=== PATIENT | female | born 1940 | race Caucasian/White ===

== ENCOUNTER 2017-12-28 10:44 | Day surgery (SDC) | payer MEDICARE, BC ==
[~2017-12-28 10:44] MED LIST: Buffered Lidocaine 0.9% SYRIN* 5 ML/SYR SYRINGE INTRADERM ONE
[2017-12-28] MEDS ORDERED: Lidocaine 1% MPF* 2 ML VIAL ONE (12:54)
[2017-12-28] MEDS ORDERED: Ketorolac 0.5% OPHTH (NF) 0.5 % 5 ML BTL ONE (12:54)
[2017-12-28] MEDS ORDERED: Phenylephrine 2.5% OPTH.SOL* 2 ML BTL ONE (12:54)
[2017-12-28] MEDS ORDERED: Tropicamide 1% OPTH.SOL* BTL ONE (12:54)
[2017-12-28] MEDS ORDERED: Neomycin/Polymy/Dex OPHTH.OIN* 3.5 GM ONE (12:54)
[2017-12-28] MEDS ORDERED: Tetracaine 0.5% OPTH.SOL 4 ML* 1 DROP BTL ONE (12:54)
[2017-12-28] MEDS ORDERED: Cyclopentolate 1% OPTH.SOL* 2 ML BTL ONE (12:54)
[2017-12-28] MEDS ORDERED: Midazolam* 1 MG/ML 2 ML VIAL (2 MG) ONE (13:19)
[2017-12-28 13:45] VITALS: BP 131/71
--- NOTE | 2017-12-28 15:56 | OP ---
DATE OF OPERATION/DATE OF DICTATION: 12/28/2017 - [facility] DATE OF : 1940. SURGEON: Dr. Estevan Nicole. ENGINEERING ASSISTANT: None. ANESTHESIA: Topical with intravenous sedation. PRE-OP DIAGNOSIS: Cataract, right eye. POST-OP DIAGNOSIS: Cataract, right eye. OPERATIVE PROCEDURE: Phacoemulsification and cataract extraction with posterior chamber intraocular lens implant, right eye. COMPLICATIONS: None. BLOOD LOSS: None. DESCRIPTION OF PROCEDURE: The patient was brought to the operating room and received a small amount of intra-venous sedation. A drop of Tetracaine was placed in her right eye. She was prepped and draped in the usual sterile fashion for ophthalmic surgery and attention was directed to the right eye where a speculum was placed. A paracentesis was created at the 11 o'clock position and 0.1 cc of 1 percent preservative-free Lidocaine was injected into the anterior chamber followed by DisCoVisc. The eye was digitally stabilized while a 2.75 mm keratome was used to create a triplanar clear corneal incision at the 9 o'clock position. A continuous curvilinear capsulorrhexis was created with a cystotome and Utrata forceps. BSS on a cannula was used to hydrodissect the lens from the capsule. Phacoemulsification was performed in a divide-and- conquer technique to create four fragments which were removed. Residual cortical material was removed with irrigation and aspiration. DisCoVisc was used to inflate the capsular bag and an AUOOTO 24.0 diopter lens was folded and inserted into the capsular bag. DisCoVisc was removed using irrigation and aspiration. BSS on a cannula was used to hydrate the corneal stroma and seal the wound. At the end of the case the pupil was round and the lens was centered. The eye was of normal pressure and the wound was water tight. The speculum was removed and topical Maxitrol ointment was placed on the surface of the eye. The eye was closed, patched and shielded and the patient was sent to the recovery room in stable condition with post operative instructions and follow-up appointment given. [id number] #: [id number] MTDD
== END 2017-12-28 14:02 | disposition home or self-care (01) ==
LOC: OREAST 10:44
PROVIDERS: ATTEND Ophthalmology
DX: H25.11 Age-related nuclear cataract, right eye (principal); I48.91 Unspecified atrial fibrillation; Z79.01 Long term (current) use of anticoagulants; I10 Essential (primary) hypertension; E78.00 Pure hypercholesterolemia, unspecified
CPT/HCPCS: A9270-GY; J2250; V2632

== ENCOUNTER 2018-01-04 08:01 | Day surgery (SDC) | payer MEDICARE, OTHER ==
[~2018-01-04 08:01] MED LIST changes: +Acetaminophen TAB* 325 MG PO PRN
[2018-01-04] MEDS ORDERED: Midazolam* 1 MG/ML 2 ML VIAL (2 MG) ONE (09:03)
[2018-01-04 10:00] VITALS: BP 130/82
[2018-01-04] MEDS ORDERED: Neomycin/Polymy/Dex OPHTH.OIN* 3.5 GM ONE (10:07)
[2018-01-04] MEDS ORDERED: Phenylephrine 2.5% OPTH.SOL* 2 ML BTL ONE (10:07)
[2018-01-04] MEDS ORDERED: Tropicamide 1% OPTH.SOL* BTL ONE (10:07)
[2018-01-04] MEDS ORDERED: Ketorolac 0.5% OPHTH (NF) 0.5 % 5 ML BTL ONE (10:07)
[2018-01-04] MEDS ORDERED: Lidocaine 1% MPF* 2 ML VIAL ONE (10:07)
[2018-01-04] MEDS ORDERED: Cyclopentolate 1% OPTH.SOL* 2 ML BTL ONE (10:07)
[2018-01-04] MEDS ORDERED: Tetracaine 0.5% OPTH.SOL 4 ML* 1 DROP BTL ONE (10:07)
--- NOTE | 2018-01-04 16:25 | OP ---
DATE OF OPERATION/DATE OF DICTATION: 01/04/2018 - [facility] DATE OF : 1940. SURGEON: Dr. Estevan Nicole. HVAC TECHNICIAN: None. ANESTHESIA: Topical with intravenous sedation. PRE-OP DIAGNOSIS: Cataract, left eye. POST-OP DIAGNOSIS: Cataract, left eye. OPERATIVE PROCEDURE: Phacoemulsification and cataract extraction with posterior chamber intraocular lens implant, left eye. COMPLICATIONS: None. BLOOD LOSS: None. DESCRIPTION OF PROCEDURE: The patient was brought to the operating room and received a small amount of intravenous sedation. A drop of Tetracaine was placed in her left eye. She was prepped and draped in the usual sterile fashion for ophthalmic surgery and attention was directed to the left eye where a speculum was placed. A paracentesis was created at the 5 o'clock position and 0.1 cc of 1 percent preservative-free Lidocaine was injected into the anterior chamber followed by DisCoVisc. The eye was digitally stabilized while a 2.75 mm keratome was used to create a triplanar clear corneal incision at the 3 o'clock position. A continuous curvilinear capsulorrhexis was created with a cystotome and Utrata forceps. BSS on a cannula was used to hydrodissect the lens from the capsule. Phacoemulsification was performed in a divide-and- conquer technique to create four fragments which were removed. Residual cortical material was removed with irrigation and aspiration. DisCoVisc was used to inflate the capsular bag and an AUOOTO 23.0 diopter lens was folded and inserted into the capsular bag. DisCoVisc was removed using irrigation and aspiration. BSS on a cannula was used to hydrate the corneal stroma and seal the wound. At the end of the case the pupil was round and the lens was centered. The eye was of normal pressure and the wound was water tight. The speculum was removed and topical Maxitrol ointment was placed on the surface of the eye. The eye was closed, patched and shielded and the patient was sent to the recovery room in stable condition with post operative instructions and follow-up appointment given. [id number] #: [id number] MTDD
== END 2018-01-04 10:11 | disposition home or self-care (01) ==
LOC: OREAST 08:01
PROVIDERS: ATTEND Ophthalmology
DX: H25.12 Age-related nuclear cataract, left eye (principal); I10 Essential (primary) hypertension; I48.1 Persistent atrial fibrillation; Z79.01 Long term (current) use of anticoagulants; E78.2 Mixed hyperlipidemia; M54.41 Lumbago with sciatica, right side
CPT/HCPCS: A9270-GY; J2250; V2632

== ENCOUNTER 2018-12-06 05:55 | Inpatient (IN) | payer MEDICARE, OTHER ==
[~2018-12-06 05:55] MED LIST changes: -Acetaminophen TAB* 325 MG PO PRN; -Buffered Lidocaine 0.9% SYRIN* 5 ML/SYR SYRINGE INTRADERM ONE; +Buffered Lidocaine 1% SYRIN* 1 ML/SYRINGE INTRADERM ONE
[2018-12-06] MEDS ORDERED: Lactated Ringers 1000 ML Bag* 1,000 ML IV SCH (06:00)
[2018-12-06] MEDS ORDERED: Sodium Citrate/Citric Acid* 15 ML UDC PO ONE (06:00)
[2018-12-06] MEDS ORDERED: Sodium Citrate/Citric Acid* 15 ML UDC ONE (06:15)
[2018-12-06] MEDS ORDERED: ceFAZolin 2 GM PREMIX in ORs 2 GM/50 ML BAG IVPB ONE (06:15)
[2018-12-06] MEDS ORDERED: Bacitracin IV* 50,000 UNITS INJ ONE ×2 (06:42→10:00)
[2018-12-06] MEDS ORDERED: Lidocain 1% EPI 1:100,000 * 30 ML MDV ONE ×2 (06:42→10:00)
[2018-12-06] MEDS ORDERED: Thrombin 5,000 UNITS* 1 APPLIC KIT - topical use - TOPICAL ONE ×2 (06:42→10:00)
[2018-12-06] MEDS ORDERED: Propofol* 10 MG/ML 20 ML BTL ONE (07:32)
[2018-12-06] MEDS ORDERED: fentaNYL* 50 MCG/ML 2 ML VIAL (100 MCG VIAL) ONE ×2 (07:32→09:51)
[2018-12-06] MEDS ORDERED: Rocuronium* 10 MG/ML VIAL ONE (07:34)
[2018-12-06] MEDS ORDERED: Dexamethasone IV* 4 MG/ML 1 ML (4 MG) ONE (07:58)
[2018-12-06] MEDS ORDERED: Ondansetron INJ* 2 MG/ML VIAL IV PRN ×2 (08:29→10:12)
[2018-12-06] MEDS ORDERED: Naloxone* 0.4 MG/ML 1 ML VIAL IV PRN (08:29)
[2018-12-06] MEDS ORDERED: fentaNYL* 50 MCG/ML 2 ML VIAL (100 MCG VIAL) IV PRN (08:29)
[2018-12-06] MEDS ORDERED: Cisatracurium* 2 MG/ML MDV 5 ML ONE (09:35)
[2018-12-06] MEDS ORDERED: Ketorolac INJ* 30 MG/ML 1 ML VIAL ONE (10:03)
[2018-12-06] MEDS ORDERED: Acetaminophen TAB* 325 MG PO PRN (10:12)
[2018-12-06] MEDS ORDERED: Magnesium Hydroxide LIQ* 30 ML UDC PO PRN (10:12)
[2018-12-06] MEDS ORDERED: Ondansetron INJ* 2 MG/ML VIAL ONE (10:25)
[2018-12-06] MEDS: Lactated Ringers 1000 ML Bag* 1,000 ML IV SCH ×2 (11:46→23:22)
[2018-12-06] MEDS ORDERED: Neostigmine Methylsulfate* 1 MG/ML 10 ML VIAL (1 mg/ml) ONE (12:14)
[2018-12-06] MEDS ORDERED: Glycopyrrolate IV* 0.2 MG/ML 1 ML VIAL ONE (12:14)
[2018-12-06] MEDS: Lisinopril TAB* 10 MG PO SCH (12:43)
[2018-12-06] MEDS: HYDROcodone/ACETAMIN 5-325 MG* 1 TAB PO PRN ×2 (15:04→23:17)
[2018-12-06] MEDS: Atorvastatin* 20 MG TAB PO SCH (17:33)
--- NOTE | 2018-12-07 08:48 | PN ---
Progress Note - Progress Note Date of Service: 12/07/18 SOAP: Subjective: []POD # 1 C/O moderate incisional pain Has ambulated with less leg pain than pre op Objective: []Moderate drain output Dressing dry Assessment: []Stable post op Drain output will require further monitoring Plan: [] Stable Plan as above
[2018-12-07] MEDS: Furosemide TAB* 20 MG PO SCH (09:12)
[2018-12-07] MEDS: Diltiazem CD CAP* 120 MG PO SCH (09:12)
[2018-12-07] MEDS: Lisinopril TAB* 10 MG PO SCH (09:12)
[2018-12-07] MEDS: Diltiazem CD CAP* 180 MG PO SCH (09:12)
[2018-12-07] MEDS: amLODIPine TAB* 5 MG PO SCH (09:12)
[2018-12-07] MEDS: HYDROcodone/ACETAMIN 5-325 MG* 1 TAB PO PRN (14:45)
[2018-12-07] MEDS: Atorvastatin* 20 MG TAB PO SCH (18:00)
[2018-12-08 09:34] VITALS: BP 140/75
[2018-12-08] MEDS: Lisinopril TAB* 10 MG PO SCH (09:35)
[2018-12-08] MEDS: amLODIPine TAB* 5 MG PO SCH (09:35)
[2018-12-08] MEDS: Diltiazem CD CAP* 180 MG PO SCH (09:35)
[2018-12-08] MEDS: Furosemide TAB* 20 MG PO SCH (09:35)
[2018-12-08] MEDS: Diltiazem CD CAP* 120 MG PO SCH (09:35)
--- NOTE | 2018-12-08 16:42 | OP ---
DATE OF OPERATION: 12/06/18 - ROOM #348 DATE OF : [birth year] PRIMARY SURGEON: Dr. Alexx Smith. REVENUE COORDINATOR: NATHANIEL Ray ANESTHESIA: General. PRE-OP DIAGNOSIS: Lumbar spinal stenosis L3-4, L4-5 with spondylolisthesis L4- 5. POST-OP DIAGNOSIS: Lumbar spinal stenosis L3-4, L4-5 with spondylolisthesis L4- 5. OPERATIVE PROCEDURE: Decompressive lumbar laminectomy L3-4, L4-5 with microdissection. DESCRIPTION OF PROCEDURE: After satisfactory general anesthesia was obtained, the patient was placed on the operating room table in the prone position with the chest supported on the Ivan frame and the back slightly flexed. The lumbar region was then clipped, prepped, and draped in a sterile manner and a skin incision outlined from L3 to L5. This incision was infiltrated with 1% Xylocaine with epinephrine, after which turned down sharply to the level of the lumbar fascia. The fascia was divided along the spinous processes from L3 to L5 and the paraspinal musculature was stripped away from these posterior elements using the periosteal elevator and monopolar cautery. An intraoperative x-ray was obtained verifying proper interspace localization, after which a decompression was initially carried out on the left side. Due to her spondylolisthesis, the decision was made to leave her midline structures intact. A partial hemilaminectomy was carried out at L3-4 initially by removing the inferior aspect of the L3 lamina and medial aspect of the facet complex with a combination of the Midas Sy drill and Kerrison rongeurs. This was carried superiorly until the attachment of ligamentum flavum was taken down. The pathology at this level was a combination of marked bony facet hypertrophy as well as ligamentum flavum thickening. The dissection was carried out laterally and inferiorly until the L4 nerve root was noted to be free in its course. In a similar way, a decompression was carried out at L4-5 on the left side. The inferior aspect of L4 and the superior aspect of L5 were thinned out and a generous foraminotomy carried out over the L5 nerve root. Attention was then directed to the right side, where the marked facet and ligamentous hypertrophy were even more impressive. On the right side, the operating microscope was utilized to dissect some thickened synovial tissue from the dura. The inferior aspect of L3 and medial aspect of the facet complex were thinned out and removed with a Kerrison and a generous foraminotomy carried out over the L4 nerve root. A similar decompression was then carried out at L4-5. The inferior aspect of L4 and medial aspect of the facet complex were thinned out and removed with the Kerrison. At the conclusion of the decompression, the wound was thoroughly irrigated, after which a drain was placed in the epidural space and tunneled out towards the left side. The fascia was then reapproximated with 0 Vicryl suture. The subcutaneous tissue was closed with 3-0 Vicryl suture and the skin closed with skin clips. The estimated blood loss was less than 50 cc and the final sponge, lina, and needle counts were correct. The patient was taken to the recovery room, extubated, and in stable condition. [id number] #: [id number] MTDD
== END 2018-12-08 11:35 | disposition home or self-care (01) | DRG 517 ==
LOC: OR 05:55 → SSU 08:27 → OBSVTOIN 12-07 08:27
PROVIDERS: ADMIT Neurological Surgery; ATTEND Neurological Surgery
PROC: 01NB0ZZ Release Lumbar Nerve, Open Approach (ICD-10-PCS; principal; 2018-12-07)
DX: M48.062 Spinal stenosis, lumbar region with neurogenic claudication (principal); I10 Essential (primary) hypertension; E78.5 Hyperlipidemia, unspecified; I48.0 Paroxysmal atrial fibrillation; I77.810 Thoracic aortic ectasia; I48.2 Chronic atrial fibrillation; M43.16 Spondylolisthesis, lumbar region; Z82.49 Family history of ischemic heart disease and other diseases of the circulatory system; Z80.9 Family history of malignant neoplasm, unspecified; Z87.891 Personal history of nicotine dependence
CPT/HCPCS: 72100; A9270-GY; J0690; J1100; J1885; J2405; J2704; J2710; J3010

== ENCOUNTER 2019-10-01 10:02 | Observation (INO) | payer MEDICARE, OTHER ==
--- NOTE | 2019-10-01 10:23 | ED ---
Adult Trauma - HPI Summary HPI Summary: The patient is an 79 y/o F presenting to [facility] accompanied by family with a chief complaint of a mechanical fall with trauma yesterday. She reports that she was getting up from the table to walk to the refrigerator, and then she is unsure if she tripped, but she fell. She denies any loss of consciousness with the event, but she is now sustaining multiple injuries following landing on her left knee, left hand, and hitting her nose. There is an abrasion on the right side of the nose, swelling in the right maxilla, swelling in the lower lip, pain in the left temporal area, ecchymosis on the left hand, swelling in the left knee with mild decreased ROM, and stiffness in the left side of the neck. Currently, her pain is rated 5/10 in severity. Movement aggravates the pain, and rest alleviates it mildly. She last self-administered Tylenol last night, and she has not taken any medications for pain this morning. She takes Xarelto. PMHx: atrial fibrillation, HTN, arthritis, cataracts. Former smoker, no EtOH, no substance use. Medications reviewed. Allergies noted. - History of Current Complaint Chief Complaint: EDFall Stated Complaint: INJURIES FROM FALL YESTERDAY PER PT Time Seen by Provider: 10/01/19 10:11 Hx Obtained From: Patient Mechanism of Injury: Fall Loss of Consciousness: no loss of consciousness Onset/Duration: Started Hours Ago - last night, Still Present Onset of Pain: Immediate Onset Severity: Moderate Current Severity: Moderate Pain Intensity: 5 Pain Scale Used: 0-10 Numeric Location: Head - left temporal, right cheek, nose, lower lip, Extremities - left hand, left knee Character: Aching Aggravating Factor(s): Movement Alleviating Factor(s): Rest Associated Signs & Symptoms: Positive: Ecchymosis - left hand, Other: - abrasion on the right side of the nose, swelling in the right maxilla, swelling in the lower lip, pain in the left temporal area, swelling in the left knee with mild decreased ROM, stiffness in the left side of the neck. Negative: Loss of Consciousness - Additional Pertinent History Primary Care Physician: [id number] - Allergy/Home Medications Allergies/Adverse Reactions: Allergies Allergy/AdvReac Type Severity Reaction Status Date / Time Sulfa (Sulfonamide Allergy Rash Verified 10/01/19 10:08 Antibiotics) PMH/Surg Hx/FS Hx/Imm Hx Endocrine/Hematology History: Denies: Hx Diabetes Cardiovascular History: Reports: Hx Atrial Fibrillation, Hx Hypertension - TAKES MEDICATION, Other Cardiovascular Problems/Disorders - a fib Denies: Hx Hypercholesterolemia, Hx Pacemaker/ICD Respiratory History: Denies: Other Respiratory Problems/Disorders GI History: Denies: Other GI Disorders History: Denies: Hx Renal Disease Musculoskeletal History: Reports: Hx Arthritis - HANDS, KNEES, HIPS Denies: Other Musculoskeletal History Sensory History: Reports: Hx Cataracts - radhika, Hx Contacts or Glasses - GLASSES, Hx Hearing Aid - radhika Opthamlomology History: Reports: Hx Cataracts - radhika, Hx Contacts or Glasses - GLASSES Neurological History: Denies: Other Neuro Impairments/Disorders Psychiatric History: Denies: Hx Panic Disorder - Surgical History Surgical History: Yes Surgery Procedure, Year, and Place: REMOVAL OF COLON POLYP, 1997, [facility] [place]. TUBAL LIGATION. appendectomy. left shoulder, 2013, [facility] [place] Hx Anesthesia Reactions: No Infectious Disease History: No Infectious Disease History: Denies: Traveled Outside the [place] in Last 30 Days - Family History Known Family History: Negative: Diabetes - Social History Alcohol Use: None Alcohol Amount: social only Hx Substance Use: No Substance Use Type: Reports: None Hx Tobacco Use: Yes Smoking Status (MU): Former Smoker Amount Used/How Often: 2 CIGARETTES PER DAYX 5 YEARS Review of Systems Positive: Myalgia - neck stiffness on left side, Decreased ROM - left lower extremity secondary to swelling in the knee Positive: Bruising - on left hand, Other - abrasion on nose, swelling of left lip Neurological: Other - facial injuries (swelling in the right maxilla, swelling in the lower lip, pain in the left temporal area); Negative: loss of consciousness All Other Systems Reviewed And Are Negative: Yes Physical Exam - Summary Physical Exam Summary: VITAL SIGNS: Reviewed. GENERAL: Patient is a well-developed and nourished elderly female who is lying comfortable in the stretcher. Patient is not in any acute respiratory distress. HEAD AND FACE: Tenderness in the left temporal area. Swelling in the right cheek. Abrasion on the nose. No ecchymosis, hematomas or skull depressions. No sinus tenderness. EYES: PERRLA, EOMI x 2, No injected conjunctiva, no nystagmus. No photophobia. EARS: Hearing grossly intact. Ear canals and tympanic membranes are within normal limits. MOUTH: Oropharynx within normal limits. NECK: Supple, trachea is midline, no adenopathy, no JVD, no carotid bruit, no c- spine tenderness, neck with full ROM. No meningeal signs, no Kernig's or brudzinskis signs. CHEST: Symmetric, no tenderness at palpation. LUNGS: Clear to auscultation bilaterally. No wheezing or crackles. CVS: Regular rate and rhythm, S1 and S2 present, no murmurs or gallops appreciated. ABDOMEN: Soft, non-tender. No signs of distention. No rebound, no guarding, and no masses palpated. Bowel sounds are normal. EXTREMITIES: Swelling of the left knee with decreased ROM in the left lower extremity. FROM in all other major joints. Bruising in the ventral aspect of the left hand. No edema, no cyanosis or clubbing. NEURO: Alert and oriented x 3. No acute neurological deficits. Speech is normal and follows commands. SKIN: Dry and warm. GCS: 15. Triage Information Reviewed: Yes Vital Signs On Initial Exam: Initial Vitals Temp Pulse Resp BP Pulse Ox 98.8 F 82 16 147/91 98 10/01/19 10:04 10/01/19 10:04 10/01/19 10:04 10/01/19 10:04 10/01/19 10:04 Vital Signs Reviewed: Yes - [place] Coma Scale Best Eye Response: 4 - Spontaneous Best Motor Response: 6 - Obeys Commands Best Verbal Response: 5 - Oriented Coma Scale Total: 15 Procedures - Sedation Patient Received Moderate/Deep Sedation with Procedure: No - Splinting Left Upper Extremity Location: left hand Hand-Made Type: orthoglass Splint: ulnar gutter Pre-Proc Neuro Vasc Exam: normal Post-Proc Neuro Vasc Exam: normal, unchanged from pre-exam Splint Applied by Provider: Hipolito Spain - Vital Signs Vital Signs Temp Pulse Resp BP Pulse Ox 10/01/19 10:04 98.8 F 82 16 147/91 98 - Laboratory Result Diagrams: 10/02/19 05:13 10/01/19 10:25 Lab Statement: Any lab studies that have been ordered have been reviewed, and results considered in the medical decision making process. - Radiology Left Wrist X-Ray Radiology Interpretation Completed By: Radiologist Summary of Radiographic Findings: Impression: 1. Nondisplaced fracture through the proximal shaft of the fourth metacarpal. 2. Osteopenia with no displaced wrist fracture. 3. Advanced first CMC osteoarthropathy. ED physician has reviewed this report. Left Hand X-Ray Radiology Interpretation Completed By: Radiologist Summary of Radiographic Findings: Impression: 1. Nondisplaced fracture at the proximal shaft of the fourth metacarpal. 2. Advanced osteoarthropathy as above. 3. Osteoporosis. ED physician has reviewed this report. Left Knee X-Ray Radiology Interpretation Completed By: Radiologist Summary of Radiographic Findings: Impression: 1. Lipohemarthrosis with a suspected medial tibial plateau fracture (no depressed component). 2. Vascular calcifications. ED physician has reviewed this report. - CT Brain CT CT Interpretation Completed By: Radiologist Summary of CT Findings: Impression: No acute intracranial abnormality. ED physician has reviewed this report. Cervical Spine CT CT Interpretation Completed By: Radiologist Summary of CT Findings: Impression: 1. No fracture or traumatic malalignment of the cervical spine. 2. Varying degrees of multilevel spondylosis results in at least mild osseous encroachment of the spinal canal C5-C6 and C6-C7. There is moderate bilateral neural foraminal stenosis at C5-C6. 3. Large burden of calcified atherosclerotic plaque near the common carotid artery bifurcations. ED physician has reviewed this report. Maxillofacial CT CT Interpretation Completed By: Radiologist Summary of CT Findings: Impression: 1. No acute maxillofacial fracture. 2. Suspected postoperative changes related to a prior left marginal mandibulectomy. 3. Untreated periodontal disease of the single remaining right mandibular molar. ED physician has reviewed this report. Left Lower Extremity CT CT Interpretation Completed By: Radiologist Summary of CT Findings: Impression: 1. A nondisplaced sagittally oriented medial tibial plateau fracture is in close proximity to the tibial spine. There is no depressed component. 2. Joint effusion with lipohemarthrosis. 3. A subcutaneous hematoma anterior to the tibial tuberosity measures up to 7 cm in greatest dimension. 4. Vascular calcifications. ED physician has reviewed this report. Re-Evaluation - Re-Evaluation First Eval Re-Evaluation Time: 12:00 Comment: I place a splint on the patient's left hand following imaging results. Adult Trauma Course/Dx - Course Assessment/Plan: This patient is an 79-year-old female who presents to the emergency department with a chief complaint of an accidental fall yesterday. She denies any loss of consciousness. She is complaining of right facial pain, slight headache and neck pain. She is also complaining of left hand and left knee pain. Blood work without any significant abnormality except for glucose of 119. Head CT impression: No acute intracranial abnormality. C Spine CT Impression: 1. No fracture or traumatic malalignment of the cervical spine. 2. Varying degrees of multilevel spondylosis results in at least mild osseous encroachment of the spinal canal C5-C6 and C6-C7. There is moderate bilateral neural foraminal stenosis at C5-C6. 3. Large burden of calcified atherosclerotic plaque near the common carotid artery bifurcations. Wrist and hand X ray Impression: 1. Nondisplaced fracture through the proximal shaft of the fourth metacarpal. 2. Osteopenia with no displaced wrist fracture. 3. Advanced first CMC osteoarthropathy. Knee x ray Impression: 1. Lipohemarthrosis with a suspected medial tibial plateau fracture (no depressed component). 2. Vascular calcifications. Discussed the case with Dr. Blanco from orthopedics and he recommends a left knee CT. This is and non weight bearing fracture. Also he recommends a posterior splint of the left hand. Maxillofacial CT Impression: 1. No acute maxillofacial fracture. 2. Suspected postoperative changes related to a prior left marginal mandibulectomy. 3. Untreated periodontal disease of the single remaining right mandibular molar. Left Knee CT Impression: 1. A nondisplaced sagittally oriented medial tibial plateau fracture is in close proximity to the tibial spine. There is no depressed component. 2. Joint effusion with lipohemarthrosis. 3. A subcutaneous hematoma anterior to the tibial tuberosity measures up to 7 cm in greatest dimension. 4. Vascular calcifications. I discussed my physical exam and test results with Dr. Espinosa from the hospitalist services, and she agrees to admit the patient to her services. The patient is hemodynamically stable alert and oriented x3. - Diagnoses Provider Diagnoses: Medial plateau fracture, Metacarpal bone fracture - Physician Notifications Discussed Care Of Patient With: Everett Moseley - orthopedics Time Discussed With Above Provider: 11:45 Instructed by Provider To: Other - I discussed the patients case with Dr. Moseley, who requests a CT for the tibial fracture, and he notes that she will need a wheelchair when she is sent home since it is a non-weight bearing injury. I spoke with Dr. Espinosa, hospitalist, and she recommends consulting case management since the patient is unable to use crutches for the lower extremity fracture because she also has a hand fracture. The patient is unable to get a wheelchair today, so the patient will be admitted through hospitalist services. Discharge ED - Sign-Out/Discharge Documenting (check all that apply): Patient Departure - Patient accepted for admission by Dr. Espinosa. - Discharge Plan Condition: Stable Disposition: ADMITTED TO [facility] - Billing Disposition and Condition Condition: STABLE Disposition: Admitted to [facility] - Attestation Statements Document Initiated by Ganesh: Yes Documenting Scribe: Paradise Valentine Provider For Whom Ganesh is Documenting (Include Credential): Dr. Hipolito Spain MD Scribe Attestation: IParad[place], scribed for Dr. Hipolito Spain MD on 10/02/19 at 0934. Scribe Documentation Reviewed: Yes Provider Attestation: The documentation as recorded by the Paradise torre accurately reflects the service I personally performed and the decisions made by me, Dr. Hipolito Spain MD Status of [place] Document: Viewed
[2019-10-01 10:35] LABS: ABS Lymphocytes 1.1 10^3/ul (1.0-4.8); ABS Monocytes 0.8 10^3/ul (0-0.8); ABS Neutrophils 5.3 10^3/ul (1.5-7.7); Eosinophil % 0.5 %; Hematocrit 40 % (35-47); Hemoglobin 13.7 g/dL (12.0-16.0); Lymphocyte % 14.6 %; Mean Corpuscular HGB Conc 34 g/dL (31-36); Mean Corpuscular Hemoglobin 31 pg (27-31); Mean Corpuscular Volume 92 fL (80-97); Platelet Count 201 10^3/uL (150-450); Red Blood Count 4.37 10^6 /uL (3.70-4.87); Red Cell Distribution Width 13 % (10-15); White Blood Count 7.2 10^3/uL (3.5-10.8)
[2019-10-01 10:55] LABS: Albumin 3.9 g/dL (3.2-5.2); Albumin/Globulin Ratio 1.3 (1-3); BUN/Creatinine Ratio 23.3 (8-20); Calcium 9.2 mg/dL (8.6-10.3); EGFR African American 76.6 (>60); EGFR Non-African American 63.3 (>60); Globulin 2.9 g/dL (2-4); Potassium 3.5 mmol/L (3.5-5.0); Total Protein 6.8 g/dL (6.4-8.9)
[2019-10-01 12:21] LABS: Urine Appearance Cloudy; Urine Bacteria Absent (Absent); Urine Bilirubin Negative (Negative); Urine Blood Negative (Negative); Urine Color Yellow; Urine Glucose Negative (Negative); Urine Ketones Negative (Negative); Urine Nitrite Negative (Negative); Urine Protein Negative (Negative); Urine Red Blood Cell Trace(0-2/hpf) (Absent); Urine Specific Gravity 1.009 (1.010-1.030); Urine Squamous Epithelial Cell Present (Absent); Urine Urobilinogen Negative (Negative); Urine White Blood Cell 2+(11-20/hpf) (Absent)
[2019-10-01] MEDS ORDERED: HYDROcodone/ACETAMIN 5-325 MG* 1 TAB PO ONE (13:14)
[2019-10-01] MEDS ORDERED: Ondansetron INJ* 2 MG/ML VIAL IV PRN (13:37)
[2019-10-01] MEDS ORDERED: oxyCODONE/Acetamin 5/325 MG* TAB PO PRN ×2 (13:37)
--- NOTE | 2019-10-01 14:07 | CONSULT ---
Consult Consult: Orthopedic Surgery Consultation H&P Date: 10/01/2019 Requesting Service: ER Chief Complaint: Left knee and left hand pain. History: 79F LHD who tripped over her dog and sustained a mechanical fall onto her left side. She does report that she was able to walk after the fall, with significant pain. She reports pain at left knee and left hand. Denies head strike or LOC. Denies pain elsewhere. The pain is located at the left knee and is constant, moderate, sharp. Pain worse with knee ROM and lessened when rested. Review of Systems: Negative for fever, recent visual changes, difficulty swallowing, chest pain, shortness of breath, abdominal pain, hematuria, easy bruising, diffuse weakness or lack of coordination, and diffuse rash. PMH: Atrial fibrillation, hypertension, arthritis, hyperlipidemia PSH: Left shoulder surgery, cataracts, spine surgery, abdominal surgery for polyp removal Medications: Diltiazem, lisinopril, felodipine, furosemide, pravastatin, xarelto Allergies: Sulfa drugs SH: Lives at home with her . No tobacco use. FH: Noncontributory Physical Examination: Constitutional: Temp Pulse Resp BP Pulse Ox 98.8 F 78 16 130/80 97 10/01/19 10:04 10/01/19 14:00 10/01/19 10:04 10/01/19 13:21 10/01/19 14:00 General appearance is healthy and non-septic in no acute distress. Cardiovascular: Pulse examination demonstrates positive pedal pulses with brisk capillary refill. There are no varicosities. Abdomen: Soft and nontender Lymphatic: No lymphadenopathy appreciated. Skin: Bilateral upper and lower extremity examination demonstrates no ulcerative lesions. Psychiatric / Neurological: Appropriate affect. Alert and oriented to person, place and time. There is no significant abnormality in coordination appreciated. Normoreflexive deep tendon reflex of the affected extremity. Musculoskeletal: Contralateral upper and lower extremity show full range of motion with no evidence of instability and no tenderness with palpation and 5/5 strength. There is no gross deformity. The left upper extremity is in a volar splint. The fingers are warm and well- perfused with good capillary refill. Sensation is intact to light touch in all 5 fingertips. The left lower extremity reveals that the skin is intact. She does have swelling and ecchymoses about the left knee. She is quite tender at the medial tibial plateau and diffusely laterally. She can perform a straight leg raise. She does have pain with flexion of the knee, but is able to do it. No hip pain with log roll. No TTP lower leg, ankle, foot. Palpable DP pulse. Sensation is intact to light touch in the foot. Imaging: X-rays and CT were obtained, and independently interpreted and show a nondisplaced left fourth metacarpal fracture. She also has extensive degenerative changes about the left hand and wrist. At the left knee, she has a nondisplaced medial tibial plateau fracture. Laboratory Results - last 24 hr 10/01/19 10/01/19 10/01/19 10:25 10:25 11:18 WBC 7.2 RBC 4.37 Hgb 13.7 Hct 40 MCV 92 MCH 31 MCHC 34 RDW 13 Plt Count 201 MPV 9.0 Neut % (Auto) 73.3 Lymph % (Auto) 14.6 [place] % (Auto) 11.1 Eos % (Auto) 0.5 Baso % (Auto) 0.5 Absolute Neuts (auto) 5.3 Absolute Lymphs (auto) 1.1 Absolute Monos (auto) 0.8 Absolute Eos (auto) 0.0 Absolute Basos (auto) 0.0 Absolute Nucleated RBC 0.0 Nucleated RBC % 0.0 Sodium 138 Potassium 3.5 Chloride 103 Carbon Dioxide 27 Anion Gap 8 BUN 20 Creatinine 0.86 Est GFR ( Amer) 76.6 Est GFR (Non-Af Amer) 63.3 BUN/Creatinine Ratio 23.3 H Glucose 119 H Calcium 9.2 Total Bilirubin 1.00 AST 25 ALT 19 Alkaline Phosphatase 75 Total Protein 6.8 Albumin 3.9 Globulin 2.9 Albumin/Globulin Ratio 1.3 Urine Color Yellow Urine Appearance Cloudy Urine pH 6.0 Ur Specific [place] 1.009 L Urine Protein Negative Urine Ketones Negative Urine Blood Negative Urine Nitrate Negative Urine Bilirubin Negative Urine Urobilinogen Negative Ur Leukocyte Esterase 3+ A Urine WBC (Auto) 2+(11-20/hpf) A Urine RBC (Auto) Trace(0-2/hpf) Ur Squamous Epith Cells Present A Urine Bacteria Absent Urine Glucose Negative Impression and Plan: 79-year-old female, status post mechanical fall with nondisplaced left fourth metacarpal fracture and left nondisplaced medial tibial plateau fracture. We did discuss the diagnosis and treatment options, including both nonoperative and operative treatment. My recommendation is nonoperative treatment. She will remain in the left upper extremity splint, and limit her weightbearing in the left hand. For the left lower extremity, she will be nonweightbearing, range of motion as tolerated at the knee. Knee immobilizer for comfort. Followup in 1- 2 weeks in orthopedic clinic. Kayode Moseley MD
[2019-10-01] MEDS: Acetaminophen TAB* 325 MG PO PRN (15:10)
--- NOTE | 2019-10-01 17:24 | HP ---
CC: Dr. Curran in [place]; Dr. Kayode Moseley, Orthopedics * ADMISSION HISTORY AND PHYSICAL: DATE OF ADMISSION: 10/01/19 PRIMARY CARE PROVIDER: Dr. Curran in [place]. MY ATTENDING WHILE IN THE HOSPITAL: Dr. Vicki Sparrow.* (DICTATED BY NATHANIEL BUTLER) CHIEF COMPLAINT: Fall, left knee pain. HISTORY OF PRESENT ILLNESS: Ms. Coles is an 79-year-old female with past medical history significant for hypertension, atrial fibrillation and history of lumbar compression fracture, who presents to the emergency department yesterday on 09/30/19 at approximately 1320, the patient was walking to the refrigerator and tripped over her dog. The patient did not lose consciousness. The patient did not feel weak before this. The patient had actually been feeling very well. The patient had no recent changes to her medications or any recent illnesses. The patient fell forward, hit her face, left hand and left knee on the refrigerator and the ground. The patient immediately felt pain in her knee. She did not feel pain before the fall. The patient had no numbness or tingling in her hand or her leg. The patient continued to ambulate on her leg , though she did have significant pain. The patient did take Tylenol for pain control and no NSAIDs. The patient continued to take her normal meds including her Xarelto that evening. The patient denied any fevers or chills. The patient denied any dysuria, urinary frequency, or urinary incontinence. The patient has no history of frequent UTIs. The patient due to concern for persistent pain, came into the emergency department and was found to have a tibial plateau fracture as well as a fracture of the proximal shaft of the fourth metacarpal. Due to concern for multiple fractures and need for nonweightbearing status on the left leg with probable inability to use assistive devices at home, we were asked to evaluate the patient for admission to the hospital. PAST MEDICAL HISTORY: Hypertension, hyperlipidemia, atrial fibrillation, lumbar spinal stenosis, history of lumbar compression fracture. PAST SURGICAL HISTORY: Abdominal polypectomy, back surgery, cataract surgery, shoulder surgery. MEDICATIONS: 1. Diltiazem CD 300 mg p.o. daily. 2. Lisinopril 40 mg p.o. daily. 3. Felodipine 2.5 mg p.o. daily. 4. Pravastatin 80 mg p.o. daily. 5. Xarelto 20 mg p.o. daily. 6. Multivitamin 1 tab. ALLERGIES: SULFA. FAMILY HISTORY: The patient's father of intracranial hemorrhage in his sleep. The patient's mother of complications of a clot in her heart. SOCIAL HISTORY: he patient quit smoking 30 years ago and only smoked for a brief period of time in the early . The patient does not drink alcohol since she was diagnosed with atrial fibrillation. The patient denies illicit drug use. The patient used to work as a cook at [employer]. The patient is , lives with her in [place] and has 4 children. The patient's surrogate decision maker will be her daughter, Aury Shaw. REVIEW OF SYSTEMS: A 12-point review of systems was reviewed and is negative except as above in the HPI. PHYSICAL EXAMINATION GENERAL: The patient is an 79-year-old female, who appears stated age and sitting comfortably in the bed, in no acute distress. VITAL SIGNS: At the time of evaluation, temperature 98.8, pulse rate 82, respiratory rate 16, oxygen saturation 94% on room air, blood pressure 147/91. HEENT: Head: Normocephalic, atraumatic. Sclerae anicteric. No conjunctival injection. Nasal mucosa moist. Oral mucosa moist. No pharyngeal erythema, discharge, or exudate. NECK: Supple, nontender. No lymphadenopathy. No carotid bruits auscultated. No JVD. RESPIRATORY: Clear to auscultation bilaterally. No wheezes, rales, or rhonchi. Good air exchange bilaterally. CARDIAC: Regular rate and rhythm. No clicks, murmurs, gallops, or rubs. Pulses are 2+ in the bilateral dorsalis pedis, posterior tibialis, and radial areas. 1+ edema in the left lower extremity. ABDOMEN: Soft, nontender, nondistended. Bowel sounds present and normoactive in all 4 quadrants. No hepatosplenomegaly. No abdominal bruits auscultated. No hepatojugular reflux. GENITOURINARY: No suprapubic or CVA tenderness. NEURO: Cranial nerves II through XII intact. No focal deficits. Alert and oriented x3. Distal sensation in the left upper and lower extremity is intact. SKIN: Clean, dry, and intact. No rash. DIAGNOSTIC STUDIES/LAB DATA: White blood cell count 7.2, hemoglobin 13.7, platelet count 201. Sodium 138, potassium 3.5, chloride 103, carbon dioxide 27 , anion gap 8, BUN 20, creatinine 0.86, glucose 119, calcium 9.2. Bilirubin 1.0 , AST 25, ALT 19, alkaline phosphatase 75. Protein 6.8, albumin 3.9, globulin 2.9. Urine: Yellow, cloudy, low specific gravity, 3+ leukocyte esterase, 2+ white blood cells, absent bacteria, trace red blood cells and squamous epithelial cells, negative glucose. Studies: Brain CT from 10/01/19 read as no acute intracranial abnormality. Cervical spine CT read as no fracture or traumatic malalignment of the cervical spine. Varying degrees of multilevel spondylosis and at least mild osseous encroachment of the spinal canal at C5-C6, C6-C7. There is mild bilateral neural foraminal stenosis at C5-C6. Large burden of calcified atherosclerotic plaque near the common carotid artery bifurcations. Maxillofacial CT read as no acute maxillofacial fracture. Suspected postoperative changes related to prior left marginal mandibulectomy. Untreated periodontal disease in the right mandibular molar. Hand x-ray from 10/01/19 read as nondisplaced fracture of the proximal shaft of the fourth metacarpal, advanced osteoarthropathy, osteoporosis. Left knee x-ray read as lipohemarthrosis with suspected medial tibial plateau fracture. No depressed component or vascular calcifications. Wrist x-ray from 10/01/19 read as nondisplaced fracture of the proximal shaft of the fourth metacarpal, osteopenia with no displaced wrist fracture, advanced first CMC osteoarthropathy. Lower extremity CT from 10/01/19 read as nondisplaced centrally oriented medial tibial plateau fracture in close proximity to the tibial spine. There is no depressed component. Joint effusion with lipohemarthrosis, subcutaneous hematoma, anterior tibial tuberosity measures up to 7 cm in greatest dimension, vascular calcification. ASSESSMENT AND PLAN: Impression: Ms. Coles is an 79-year-old female with past medical history significant for hypertension, hyperlipidemia, atrial fibrillation, who presents to the emergency department with a mechanical fall and a tibial plateau fracture as well as a metacarpal fracture in her left hand. Due to inability to obtain a wheelchair and inability to maintain functionality at home, the patient will be admitted to the hospital for observation, physical therapy and arrangement for home care. 1. Left tibial plateau fracture. The patient's case was discussed by the emergency department with Dr. Kayode Moseley, who is yet to make his final recommendations; however, initial recommendation is for nonweightbearing status. The patient also may need to be splinted or be placed in an immobilizer. There is no indication of vascular compromise or nervous injury distal to the injury. The patient will be arranged to have a wheelchair tomorrow as well as home physical therapy. The patient will be seen by Physical Therapy and Occupational Therapy while in the hospital due to her injuries. The patient will have pain control with Tylenol and opioids at this time. The patient's pain is not unmanageable. 2. Left fourth metacarpal fracture. The patient has been splinted in the emergency department for this, awaiting Ortho recommendations on weightbearing status for the hand, though given the splint the hand has limited functionality at this point. The patient will not be able to use crutches or a walker and will necessitate a wheelchair. 3. Hypertension. The patient is currently normotensive. Continue the patient' s diltiazem, felodipine, and lisinopril. 4. Atrial fibrillation. The patient currently has a regular rhythm on exam. The patient will be continued on her diltiazem. The patient is on Xarelto. 5. Pyuria. The patient has asymptomatic pyuria. The patient will not be treated with antibiotics at this time. If the patient does develop symptoms and has gross bacteria from her urine, treatment should be considered. 6. DVT prophylaxis: The patient is currently on Xarelto. 7. FEN: The patient will have a regular unrestricted diet. Fluids are not indicated at this time. 8. Disposition: Observation. 9. Code status: The patient would like to be a full code. TIME SPENT: Approximately 60 minutes was spent on the admission of this patient , 30 of which was spent [id number] with the patient obtaining history and physical and discussing treatment plan. This plan was discussed with my attending, Dr. Vicki Sparrow, and she is in agreement. NATHANIEL BUTLER [id number]/[facility] #: [id number] TAI
[2019-10-01] MEDS ORDERED: Rivaroxaban TAB(*) 20 MG TAB PO SCH (18:00)
[2019-10-01] MEDS ORDERED: Atorvastatin* 40 MG TAB PO SCH (18:00)
[2019-10-02 05:30] LABS: ABS Eosinophils 0.1 10^3/ul (0-0.6); ABS Lymphocytes 1.5 10^3/ul (1.0-4.8); ABS Monocytes 0.7 10^3/ul (0-0.8); ABS Neutrophils 2.9 10^3/ul (1.5-7.7); Eosinophil % 2.7 %; Hematocrit 38 % (35-47); Hemoglobin 12.7 g/dL (12.0-16.0); Lymphocyte % 27.9 %; Mean Corpuscular HGB Conc 34 g/dL (31-36); Mean Corpuscular Hemoglobin 32 pg (27-31); Mean Corpuscular Volume 93 fL (80-97); Mean Platelet Volume 8.9 fL (7.4-10.4); Nucleated Red Blood Cells % 0.1; Platelet Count 181 10^3/uL (150-450); Red Blood Count 4.05 10^6 /uL (3.70-4.87); Red Cell Distribution Width 13 % (10-15); White Blood Count 5.2 10^3/uL (3.5-10.8)
[2019-10-02] MEDS ORDERED: FELODIPINE 5 MG PO SCH (09:00)
[2019-10-02] MEDS ORDERED: Diltiazem CD CAP* 180 MG PO SCH (09:00)
[2019-10-02] MEDS ORDERED: Lisinopril TAB* 10 MG PO SCH (09:00)
[2019-10-02] MEDS ORDERED: Diltiazem CD CAP* 120 MG PO SCH (09:00)
[2019-10-02] MEDS ORDERED: Furosemide TAB* 20 MG PO SCH (09:00)
--- NOTE | 2019-10-02 10:30 | PN ---
Progress Note - Progress Note Date of Service: 10/02/19 SOAP: Subjective: []Pt seen at bedside, she feels well without complaints. L hand and L knee pain well controlled and denies any other joint or extremity pain. Denies headache, CP, SOB, dizziness, nausea. Objective: []Gen: NAD, Appears well LUE: Splint CDI, Sensation intact to light touch distally, capillary refill less than two seconds distally LLE: Mild ecchymosis anterior knee Assessment: []nondisplaced left fourth metacarpal fracture left nondisplaced medial tibial plateau fracture. Plan: []nonoperative treatment. left upper extremity splint, and NWB left hand. Okay to use platform walker left lower extremity, nonweightbearing, range of motion as tolerated at the knee. Knee immobilizer for comfort. Followup in 1- 2 weeks in orthopedic clinic DVT prophy: remain on 20 mg xarelto daily Vital Signs Temp 97.7 F 10/02/19 07:36 Pulse 84 10/02/19 07:36 Resp 17 10/02/19 08:32 BP 137/80 10/02/19 07:36 Pulse Ox 93 10/02/19 07:36 Intake & Output 10/01/19 10/02/19 10/02/19 18:59 06:59 18:59 Intake Total 450 320 Output Total 675 Balance 450 -675 320 Weight 153 lb Intake: Oral 450 320 Output: Urine 675 Laboratory Last Values WBC 5.2 10^3/uL (3.5-10.8) 10/02/19 05:13 RBC 4.05 10^6 /uL (3.70-4.87) 10/02/19 05:13 Hgb 12.7 g/dL (12.0-16.0) 10/02/19 05:13 Hct 38 % (35-47) 10/02/19 05:13 MCV 93 fL (80-97) 10/02/19 05:13 MCH 32 pg (27-31) H 10/02/19 05:13 MCHC 34 g/dL (31-36) 10/02/19 05:13 RDW 13 % (10-15) 10/02/19 05:13 Plt Count 181 10^3/uL (150-450) 10/02/19 05:13 MPV 8.9 fL (7.4-10.4) 10/02/19 05:13 Neut % (Auto) 55.7 % 10/02/19 05:13 Lymph % (Auto) 27.9 % 10/02/19 05:13 [place] % (Auto) 13.2 % 10/02/19 05:13 Eos % (Auto) 2.7 % 10/02/19 05:13 Baso % (Auto) 0.5 % 10/02/19 05:13 Absolute Neuts (auto) 2.9 10^3/ul (1.5-7.7) 10/02/19 05:13 Absolute Lymphs (auto) 1.5 10^3/ul (1.0-4.8) 10/02/19 05:13 Absolute Monos (auto) 0.7 10^3/ul (0-0.8) 10/02/19 05:13 Absolute Eos (auto) 0.1 10^3/ul (0-0.6) 10/02/19 05:13 Absolute Basos (auto) 0.0 10^3/ul (0-0.2) 10/02/19 05:13 Absolute Nucleated RBC 0.0 10^3/ul 10/02/19 05:13 Nucleated RBC % 0.1 10/02/19 05:13 Sodium 138 mmol/L (135-145) 10/01/19 10:25 Potassium 3.5 mmol/L (3.5-5.0) 10/01/19 10:25 Chloride 103 mmol/L (101-111) 10/01/19 10:25 Carbon Dioxide 27 mmol/L (22-32) 10/01/19 10:25 Anion Gap 8 mmol/L (2-11) 10/01/19 10:25 BUN 20 mg/dL (6-24) 10/01/19 10:25 Creatinine 0.86 mg/dL (0.51-0.95) 10/01/19 10:25 Est GFR ( Amer) 76.6 (>60) 10/01/19 10:25 Est GFR (Non-Af Amer) 63.3 (>60) 10/01/19 10:25 BUN/Creatinine Ratio 23.3 (8-20) H 10/01/19 10:25 Glucose 119 mg/dL (70-100) H 10/01/19 10:25 Calcium 9.2 mg/dL (8.6-10.3) 10/01/19 10:25 Total Bilirubin 1.00 mg/dL (0.2-1.0) 10/01/19 10:25 AST 25 U/L (13-39) 10/01/19 10:25 ALT 19 U/L (7-52) 10/01/19 10:25 Alkaline Phosphatase 75 U/L (34-104) 10/01/19 10:25 Total Protein 6.8 g/dL (6.4-8.9) 10/01/19 10:25 Albumin 3.9 g/dL (3.2-5.2) 10/01/19 10:25 Globulin 2.9 g/dL (2-4) 10/01/19 10:25 Albumin/Globulin Ratio 1.3 (1-3) 10/01/19 10:25 Urine Color Yellow 10/01/19 11:18 Urine Appearance Cloudy 10/01/19 11:18 Urine pH 6.0 (5-9) 10/01/19 11:18 Ur Specific [place] 1.009 (1.010-1.030) L 10/01/19 11:18 Urine Protein Negative (Negative) 10/01/19 11:18 Urine Ketones Negative (Negative) 10/01/19 11:18 Urine Blood Negative (Negative) 10/01/19 11:18 Urine Nitrate Negative (Negative) 10/01/19 11:18 Urine Bilirubin Negative (Negative) 10/01/19 11:18 Urine Urobilinogen Negative (Negative) 10/01/19 11:18 Ur Leukocyte Esterase 3+ (Negative) A 10/01/19 11:18 Urine WBC (Auto) 2+(11-20/hpf) (Absent) A 10/01/19 11:18 Urine RBC (Auto) Trace(0-2/hpf) (Absent) 10/01/19 11:18 Ur Squamous Epith Cells Present (Absent) A 10/01/19 11:18 Urine Bacteria Absent (Absent) 10/01/19 11:18 Urine Glucose Negative (Negative) 10/01/19 11:18
[2019-10-02] MEDS: Acetaminophen TAB* 325 MG PO PRN (12:25)
[2019-10-02] MEDS ORDERED: AMLODIPINE 5 MG PO SCH ×2 (13:33→13:40)
[2019-10-02 15:04] VITALS: BP 93/43
--- OUTSIDE RECORDS SUMMARY | 2019-10-03 16:00 | XMS REPORT ---
:1940 Author Organization [facility] Care Team Providers Name Role Phone Unavailable Unavailable Unavailable Problems This patient has no known problems. Allergies, Adverse Reactions, Alerts Allergy Allergy Status Severity Reaction(s) Onset Inactive Treating Comments Name Type Date Date Clinician Sulfa Unknown Active Unknown Reaction 2019-10 Interface (Sulfonami de Antibiotic s) Medications Ordered Filled Start Stop Current Ordering Indication Dosage Frequency Signature Comments Components Medication Medication Date Date Medication? Clinician (SIG) Name Name furosemide furosemide No Unknown Unknown Unknown 20 mg 20 mg 6-10 tablet tablet lisinopril lisinopril No Unknown Unknown Unknown 10 mg 10 mg 6-10 tablet tablet Rivaroxaban Rivaroxaban No Unknown Unknown Unknown Tab(*) Tab(*) 4-21 felodipine felodipine No Unknown Unknown Unknown ER 5 mg ER 5 mg 2-21 tablet,exte tablet,exte nded nded release 24 release 24 hr hr Diltiazem Diltiazem No Unknown Unknown Unknown Xr Extend Xr Extend 2-21 Releas(Nf) Releas(Nf) Pravastatin Pravastatin No Unknown Unknown Unknown Sodium Sodium 2-21 Multivit Multivit No Unknown Unknown Unknown With With 2-21 Calcium,Iro Calcium,Iro n,Min n,Min Acetaminoph Acetaminoph No Unknown Unknown Unknown en en 11-29 Vital Signs Vital Name Observation Time Observation Value Comments SYSTOLIC mm[Hg] 2019-10-02 18:09:09 117 mm[Hg] mm[Hg] Method: Sit DIASTOLIC mm[Hg] 2019-10-02 18:09:09 83 mm[Hg] mm[Hg] Method: Sit PULSE 2019-10-02 18:09:09 85 /min /min RESP RATE 2019-10-02 18:09:09 17 /min /min TEMP 2019-10-02 18:09:09 97.3 [degF] Procedures This patient has no known procedures. Results Test Description Test Time Test Comments Text Results Atomic Results Result Comments Automated blood platelet mean 2019-10-02 05:13:00 Identifier 89901-5 Result Unknown volume measurement Time 2019-10-02 05:13:00 Test Item Value Reference Range Comments Automated blood platelet mean volume measurement (test code 8.9 fL Unknown Unknown F = 94655-6) Ordering Physician UnknownAutomated blood leukocytes count corrected for nucleated erythrocytes (number/volume)2019-10-02 05:13:00Identifier 21810-0 Result Time 2019-10-02 05:13:00Unknown Test Item Value Reference Range Comments Automated blood leukocytes count 5.2 10^3/uL Unknown Unknown F corrected for nucleated erythrocytes (number/volume) (test code = 52115-7) Ordering Physician UnknownAutomated blood nucleated erythrocytes jlzwcsjwn5600- 12-02 05:13:00Identifier 15475-5 Result Time 2019-10-02 05:13:00Unknown Test Item Value Reference Range Comments Automated blood nucleated erythrocytes 0.1 Unknown Unknown F detection (test code = 45096-4) Ordering Physician UnknownAutomated blood hematocrit (percentage)2019-10-02 05: 13:00Identifier 4544-3 Result Time 2019-10-02 05:13:00Unknown Test Item Value Reference Range Comments Automated blood hematocrit (percentage) (test 38 % Unknown Unknown F code = 4544-3) Ordering Physician UnknownAutomated blood monocytes/100 axctroahjd1157-05-74 05: 13:00Identifier 5905-5 Result Time 2019-10-02 05:13:00Unknown Test Item Value Reference Range Comments Automated blood monocytes/100 leukocytes 13.2 % Unknown Unknown F (test code = 5905-5) Ordering Physician UnknownAutomated blood basophil count (number/volume) 05:13:00Identifier 704-7 Result Time 2019-10-02 05:13:00Unknown Test Item Value Reference Range Comments Automated blood basophil count 0.0 10^3/ul Unknown Unknown F (number/volume) (test code = 704-7) Ordering Physician UnknownAutomated blood basophils/100 hyxvgiuykk7169-03-07 05: 13:00Identifier 706-2 Result Time 2019-10-02 05:13:00Unknown Test Item Value Reference Range Comments Automated blood basophils/100 leukocytes 0.5 % Unknown Unknown F (test code = 706-2) Ordering Physician UnknownAutomated blood eosinophil count (number/volume)10-02 05:13:00Identifier 711-2 Result Time 2019-10-02 05:13:00Unknown Test Item Value Reference Range Comments Automated blood eosinophil count 0.1 10^3/ul Unknown Unknown F (number/volume) (test code = 711-2) Ordering Physician UnknownAutomated blood eosinophils/100 [id number] 05:13:00Identifier 713-8 Result Time 2019-10-02 05:13:00Unknown Test Item Value Reference Range Comments Automated blood eosinophils/100 leukocytes 2.7 % Unknown Unknown F (test code = 713-8) Ordering Physician UnknownBlood hemoglobin measurement (mass/volume)2019-10-02 05:13:00Identifier 718-7 Result Time 2019-10-02 05:13:00Unknown Test Item Value Reference Range Comments Blood hemoglobin measurement 12.7 g/dL Unknown Unknown F (mass/volume) (test code = 718-7) Ordering Physician UnknownBlood lymphocytes automated count (number/volume)10-02 05:13:00Identifier 731-0 Result Time 2019-10-02 05:13:00Unknown Test Item Value Reference Range Comments Blood lymphocytes automated count 1.5 10^3/ul Unknown Unknown F (number/volume) (test code = 731-0) Ordering Physician UnknownAutomated blood lymphocytes/100 [id number] 05:13:00Identifier 736-9 Result Time 2019-10-02 05:13:00Unknown Test Item Value Reference Range Comments Automated blood lymphocytes/100 leukocytes 27.9 % Unknown Unknown F (test code = 736-9) Ordering Physician UnknownBlood monocytes automated count (number/volume)2019-10 05:13:00Identifier 742-7 Result Time 2019-10-02 05:13:00Unknown Test Item Value Reference Range Comments Blood monocytes automated count 0.7 10^3/ul Unknown Unknown F (number/volume) (test code = 742-7) Ordering Physician UnknownAutomated blood neutrophils/100 havvyyfcrt8266-66-04 05:13:00Identifier 770-8 Result Time 2019-10-02 05:13:00Unknown Test Item Value Reference Range Comments Automated blood neutrophils/100 leukocytes 55.7 % Unknown Unknown F (test code = 770-8) Ordering Physician UnknownBlood nucleated erythrocytes automated count (number/ volume)2019-10-02 05:13:00Identifier 771-6 Result Time 2019-10-02 05:13: 00Unknown Test Item Value Reference Range Comments Blood nucleated erythrocytes automated 0.0 10^3/ul Unknown Unknown F count (number/volume) (test code = 771-6) Ordering Physician UnknownAutomated blood platelet count (number/volume) 05:13:00Identifier 777-3 Result Time 2019-10-02 05:13:00Unknown Test Item Value Reference Range Comments Automated blood platelet count 181 10^3/uL Unknown Unknown F (number/volume) (test code = 777-3) Ordering Physician UnknownAutomated erythrocyte mean corpuscular hemoglobin ( mass per erythrocyte)2019-10-02 05:13:00Identifier 785-6 Result Time 2019-10-02 05:13:00Unknown Test Item Value Reference Range Comments Automated erythrocyte mean corpuscular 32 pg Unknown Unknown F hemoglobin (mass per erythrocyte) (test code = 785-6) Ordering Physician UnknownAutomated erythrocyte mean corpuscular hemoglobin concentration measurement (mass/mlt8436-06-46 05:13:00Identifier 786-4 Result Time 2019-10-02 05:13:00Unknown Test Item Value Reference Range Comments Automated erythrocyte mean corpuscular 34 g/dL Unknown Unknown F hemoglobin concentration measurement (mass/vol (test code = 786-4) Ordering Physician UnknownAutomated erythrocyte mean corpuscular tzludw8844-07- 02 05:13:00Identifier 787-2 Result Time 2019-10-02 05:13:00Unknown Test Item Value Reference Range Comments Automated erythrocyte mean corpuscular volume 93 fL Unknown Unknown F (test code = 787-2) Ordering Physician UnknownAutomated erythrocyte distribution width merlf6618-95- 02 05:13:00Identifier 788-0 Result Time 2019-10-02 05:13:00Unknown Test Item Value Reference Range Comments Automated erythrocyte distribution width ratio 13 % Unknown Unknown F (test code = 788-0) Ordering Physician UnknownAutomated blood erythrocyte count (number/volume)10-02 05:13:00Identifier 789-8 Result Time 2019-10-02 05:13:00Unknown Test Item Value Reference Range Comments Automated blood erythrocyte count 4.05 10^6 /uL Unknown Unknown F (number/volume) (test code = 789-8) Ordering Physician UnknownLymphocyte proliferation zoca7074-37-47 05:13: 00Identifier [id number] Result Time 2019-10-02 05:13:00Unknown Test Item Value Reference Range Comments Lymphocyte proliferation test (test 2.9 10^3/ul Unknown Unknown F code = CXP3780) Ordering Physician UnknownUrine urobilinogen measurement (units/volume) by test mkiaz6142-97-30 11:18:00Identifier 94303-3 Result Time 2019-10-01 11:18: 00Unknown Test Item Value Reference Range Comments Urine urobilinogen measurement Negative Unknown Unknown F (units/volume) by test strip (test code = 14888-5) Ordering Physician UnknownUrine bacteria detection by automated fcnesl6259-54- 01 11:18:00Identifier 42738-1 Result Time 2019-10-01 11:18:00Unknown Test Item Value Reference Range Comments Urine bacteria detection by automated Absent Unknown Unknown F method (test code = 45850-2) Ordering Physician UnknownUrine total bilirubin detection by automated test wdwrk2842-55-81 11:18:00Identifier 29383-4 Result Time 2019-10-01 11:18: 00Unknown Test Item Value Reference Range Comments Urine total bilirubin detection by Negative Unknown Unknown F automated test strip (test code = 86838-9) Ordering Physician UnknownUrine clarity by refractometry neycxejvf5753-06-71 11: 18:00Identifier 39610-7 Result Time 2019-10-01 11:18:00Unknown Test Item Value Reference Range Comments Urine clarity by refractometry automated Cloudy Unknown Unknown F (test code = 88192-6) Ordering Physician UnknownColor of Urine by Tzcz0654-54-17 11:18:00Identifier 00072-0 Result Time 2019-10-01 11:18:00Unknown Test Item Value Reference Range Comments Color of Urine by Auto (test code = Yellow Unknown Unknown F 06816-6) Ordering Physician UnknownUrine glucose detection by automated test upydm2862-78 -01 11:18:00Identifier 83884-1 Result Time 2019-10-01 11:18:00Unknown Test Item Value Reference Range Comments Urine glucose detection by automated test Negative Unknown Unknown F strip (test code = 01248-1) Ordering Physician UnknownKetones [Mass/volume] in Urine by Automated test stqik1511-01-66 11:18:00Identifier 65214-5 Result Time 2019-10-01 11:18: 00Unknown Test Item Value Reference Range Comments Ketones [Mass/volume] in Urine by Negative Unknown Unknown F Automated test strip (test code = 72726-4) Ordering Physician UnknownUrine nitrite detection by automated test awysx8011-56 -01 11:18:00Identifier 61781-4 Result Time 2019-10-01 11:18:00Unknown Test Item Value Reference Range Comments Urine nitrite detection by automated test Negative Unknown Unknown F strip (test code = 42923-9) Ordering Physician UnknownProtein [Mass/volume] in Urine by Automated test bkyvx5807-97-02 11:18:00Identifier 74932-8 Result Time 2019-10-01 11:18: 00Unknown Test Item Value Reference Range Comments Protein [Mass/volume] in Urine by Negative Unknown Unknown F Automated test strip (test code = 75776-6) Ordering Physician UnknownSpecific gravity of Urine by Refractometry oqxyptwpn8759-51-75 11:18:00Identifier 77361-1 Result Time 2019-10-01 11:18: 00Unknown Test Item Value Reference Range Comments Specific gravity of Urine by Refractometry 1.009 Unknown Unknown F automated (test code = 57391-5) Ordering Physician UnknownUrine erythrocytes detection by automated skhlgn140510-01 11:18:00Identifier 53450-9 Result Time 2019-10-01 11:18:00Unknown Test Item Value Reference Range Comments Urine erythrocytes detection by Trace(0-2/hpf) Unknown Unknown F automated method (test code = 39267-8) Ordering Physician UnknownUrine leukocytes detection by automated gyxaid9278-04- 01 11:18:00Identifier 47396-6 Result Time 2019-10-01 11:18:00Unknown Test Item Value Reference Range Comments Urine leukocytes detection by 2+(11-20/hpf) Unknown Unknown F automated method (test code = 47114-3) Ordering Physician UnknownUrine hemoglobin detection by test gkfce0396-74-25 11: 18:00Identifier 5794-3 Result Time 2019-10-01 11:18:00Unknown Test Item Value Reference Range Comments Urine hemoglobin detection by test strip Negative Unknown Unknown F (test code = 5794-3) Ordering Physician UnknownUrine leukocyte esterase detection by automated test wbbpl1724-34-10 11:18:00Identifier 31582-5 Result Time 2019-10-01 11:18: 00Unknown Test Item Value Reference Range Comments Urine leukocyte esterase detection by automated 3+ Unknown Unknown F test strip (test code = 36437-3) Ordering Physician UnknownUrine epithelial cells bnhgetwom9123-11-42 11:18: 00Identifier 24691-4 Result Time 2019-10-01 11:18:00Unknown Test Item Value Reference Range Comments Urine epithelial cells detection (test Present Unknown Unknown F code = 60466-6) Ordering Physician UnknownSerum or plasma alanine aminotransferase measurement ( enzymatic activity/volume)2019-10-01 10:25:00Identifier 1742-6 Result Time 10-01 10:25:00Unknown Test Item Value Reference Range Comments Serum or plasma alanine aminotransferase 19 U/L Unknown Unknown F measurement (enzymatic activity/volume) (test code = 1742-6) Ordering Physician UnknownSerum or plasma albumin/globulin mass ujkzg3002-61-73 10:25:00Identifier 1759-0 Result Time 2019-10-01 10:25:00Unknown Test Item Value Reference Range Comments Serum or plasma albumin/globulin mass ratio 1.3 Unknown Unknown F (test code = 1759-0) Ordering Physician UnknownSerum or plasma calcium measurement (mass/volume)10-01 10:25:00Identifier 18157-2 Result Time 2019-10-01 10:25:00Unknown Test Item Value Reference Range Comments Serum or plasma calcium measurement 9.2 mg/dL Unknown Unknown F (mass/volume) (test code = 59933-7) Ordering Physician UnknownSerum or plasma aspartate aminotransferase measurement (enzymatic activity/volume)2019-10-01 10:25:00Identifier 0-8 Result Time 2019-10-01 10:25:00Unknown Test Item Value Reference Range Comments Serum or plasma aspartate aminotransferase 25 U/L Unknown Unknown F measurement (enzymatic activity/volume) (test code = 1919-8) Ordering Physician UnknownSerum or plasma total bilirubin measurement (mass/ volume)2019-10-01 10:25:00Identifier 1974-2 Result Time 2019-10-01 10:25: 00Unknown Test Item Value Reference Range Comments Serum or plasma total bilirubin 1.00 mg/dL Unknown Unknown F measurement (mass/volume) (test code = 1974-) Ordering Physician UnknownSerum or plasma carbon dioxide, total measurement ( moles/volume)2019-10-01 10:25:00Identifier 2027- Result Time 2019-10-01 10:25: 00Unknown Test Item Value Reference Range Comments Serum or plasma carbon dioxide, total 27 mmol/L Unknown Unknown F measurement (moles/volume) (test code = 2027-) Ordering Physician UnknownSerum or plasma chloride measurement (moles/volume) 2019-10-01 10:25:00Identifier 5-0 Result Time 2019-10-01 10:25:00Unknown Test Item Value Reference Range Comments Serum or plasma chloride measurement 103 mmol/L Unknown Unknown F (moles/volume) (test code = 2074-0) Ordering Physician UnknownSerum or plasma creatinine measurement (mass/volume) 2019-10-01 10:25:00Identifier 2160-0 Result Time 2019-10-01 10:25:00Unknown Test Item Value Reference Range Comments Serum or plasma creatinine measurement 0.86 mg/dL Unknown Unknown F (mass/volume) (test code = 2160-0) Ordering Physician UnknownSerum glucose measurement (mass/volume)2019-10-01 10: 25:00Identifier 2345-7 Result Time 2019-10-01 10:25:00Unknown Test Item Value Reference Range Comments Serum glucose measurement (mass/volume) 119 mg/dL Unknown Unknown F (test code = 2345-7) Ordering Physician UnknownSerum or plasma potassium measurement (moles/volume) 2019-10-01 10:25:00Identifier 2823-3 Result Time 2019-10-01 10:25:00Unknown Test Item Value Reference Range Comments Serum or plasma potassium measurement 3.5 mmol/L Unknown Unknown F (moles/volume) (test code = 2823-3) Ordering Physician UnknownSerum total protein measurement (mass/volume) 10:25:00Identifier 2885-2 Result Time 2019-10-01 10:25:00Unknown Test Item Value Reference Range Comments Serum total protein measurement 6.8 g/dL Unknown Unknown F (mass/volume) (test code = 2885-2) Ordering Physician UnknownSerum or plasma sodium measurement (moles/volume)10-01 10:25:00Identifier 2951-2 Result Time 2019-10-01 10:25:00Unknown Test Item Value Reference Range Comments Serum or plasma sodium measurement 138 mmol/L Unknown Unknown F (moles/volume) (test code = 2951-2) Ordering Physician UnknownSerum or plasma urea nitrogen measurement (mass/volume )2019-10-01 10:25:00Identifier 3094-0 Result Time 2019-10-01 10:25:00Unknown Test Item Value Reference Range Comments Serum or plasma urea nitrogen measurement 20 mg/dL Unknown Unknown F (mass/volume) (test code = 3094-0) Ordering Physician UnknownSerum or plasma urea nitrogen/creatinine mbsaj5186-66- 01 10:25:00Identifier 3097-3 Result Time 2019-10-01 10:25:00Unknown Test Item Value Reference Range Comments Serum or plasma urea nitrogen/creatinine 23.3 Unknown Unknown F ratio (test code = 3097-3) Ordering Physician UnknownSerum or plasma anion [id number] 10:25: 00Identifier 01524-3 Result Time 2019-10-01 10:25:00Unknown Test Item Value Reference Range Comments Serum or plasma anion gap (test code = 8 mmol/L Unknown Unknown F 90062-7) Ordering Physician UnknownEstimated glomerular filtration rate (GFR) non- Yxyhhemk7297-05-66 10:25:00Identifier 28399-0 Result Time 2019-10-01 10: 25:00Unknown Test Item Value Reference Range Comments Estimated glomerular filtration rate (GFR) 63.3 Unknown Unknown F non- (test code = 15781-4) Ordering Physician UnknownSerum or plasma albumin measurement by bromocresol green (BCG) dye binding method ([id number] 10:25:00Identifier 93140-7 Result Time 2019-10-01 10:25:00Unknown Test Item Value Reference Range Comments Serum or plasma albumin measurement by 3.9 g/dL Unknown Unknown F bromocresol green (BCG) dye binding method (dc (test code = 26695-4) Ordering Physician UnknownSerum or plasma alkaline phosphatase measurement ( enzymatic activity/volume)2019-10-01 10:25:00Identifier 6768-6 Result Time 10-01 10:25:00Unknown Test Item Value Reference Range Comments Serum or plasma alkaline phosphatase 75 U/L Unknown Unknown F measurement (enzymatic activity/volume) (test code = 6768-6) Ordering Physician Unknown
--- NOTE | 2019-10-03 20:57 | DS ---
CC: Dr. Curran, [place]; Dr. Kayode Moseley * DISCHARGE SUMMARY: DATE OF ADMISSION: 10/01/19 DATE OF DISCHARGE: 10/02/19 PRIMARY CARE PROVIDER: Dr. Curran in [place]. MY ATTENDING WHILE IN THE HOSPITAL: Dr. Barbara Cade.* (DICTATED BY NATHANIEL BUTLER) CONSULTING ORTHOPEDICS: Dr. Kayode Moseley. PRIMARY DISCHARGE DIAGNOSES: 1. Left tibial plateau fracture, nondisplaced. 2. Left fourth metacarpal fracture, nondisplaced. SECONDARY DISCHARGE DIAGNOSES: 1. Hypertension. 2. Hyperlipidemia 3. Atrial fibrillation. 4. History of lumbar spinal stenosis. 5. History of lumbar compression fracture. STUDIES DONE WHILE IN THE HOSPITAL: Brain CT from 10/01/19 read as no acute intracranial abnormality. Cervical spine CT shows no fracture. Maxillofacial CT shows no fracture. Hand x-ray shows nondisplaced fracture of the proximal shaft of the fourth metacarpal, advanced osteoarthropathy, osteoporosis. Knee x -ray read as lipohemarthrosis with suspected medial tibial plateau fracture. Wrist x-ray read as nondisplaced fracture of the proximal shaft of the fourth metacarpal, osteopenia with nondisplaced wrist fracture, advanced arthropathy of the CMC joint. Lower extremity CT shows a nondisplaced, slightly oriented medial tibial plateau fracture in close proximity to the tibial spine. There is no depressed component. Joint effusion with lipohemarthrosis, subcutaneous hematoma, anterior tibial tuberosity measuring 7 cm in greatest dimension, vascular calcifications. MEDICATIONS AT DISCHARGE: 1. Lisinopril 40 mg p.o. daily. 2. Furosemide 20 mg p.o. daily 3. Rivaroxaban 20 mg p.o. daily. 4. Multivitamin 1 tab p.o. daily. 5. Felodipine 2.5 mg p.o. daily. 6. Diltiazem 300 mg p.o. daily. 7. Pravastatin 80 mg p.o. daily. 8. Tylenol 650 mg p.o. q.4 hours as needed. New medications at discharge: Tylenol. Medications discontinued at discharge: None. HOSPITAL COURSE: This is a brief summary of the patient's presentation. For more details, please see the history and physical from this author on 10/01/19. In brief, the patient is an 79-year-old female who has been in her normal state of health when she tripped over her dog at approximately 1 p.m. on the day before her presentation. She hit her head, her hand, and her leg. She had immediate pain in her knee and her hand. She did not have any loss of consciousness. She did not have any headache. She only took Tylenol for pain control, which was moderately effective in controlling her pain. She continued to bear weight on her leg, but given worsening in her pain, she presented to the emergency department the day after her fall and was found to have a tibial plateau fracture as above. The patient was instructed to have nonweightbearing on that leg as well and had her hands splinted for her metacarpal fracture. The patient was admitted to the hospital for pain control and physical therapy and ordered particularly to obtain wheelchair which was essential for safe discharge. The patient was admitted to the hospital. The patient's pain was well controlled only with Tylenol. The patient performed well with physical therapy, being able to perform all the tasks she would need to go home. The patient had no drop in her hemoglobin related to above noted hematoma or trauma. The patient had 3+ leukocyte esterase in her urine, but no urinary symptoms and no growth on her urine culture. The patient was stable and anxious for discharge on 10/02/19 after being able to adequately demonstrate her ability to do physical therapy. PHYSICAL EXAM ON THE DAY OF DISCHARGE: General: The patient is an 79-year-old female who appears stated age and sitting comfortably in the bed, in no acute distress. Vital Signs: Temperature 97.5, pulse rate 81, respiratory rate 16, oxygen saturation 96% on room air, blood pressure 93/43. HEENT: Head normocephalic, atraumatic. Sclerae anicteric. No conjunctival injection. Nasal mucosa moist. Oral mucosa moist. No pharyngeal erythema, discharge, or exudate. Neck: Supple, nontender. No lymphadenopathy. No carotid bruits auscultated. No JVD. Cardiac: Irregularly irregular rhythm. No clicks, murmurs, gallops, or rubs. Pulses are 2+ in the dorsalis pedis, posterior tibialis, and radial areas. Respiratory: Clear to auscultation bilaterally. No wheezes, rales, or rhonchi. Good air exchange bilaterally. Abdomen: Soft, nontender, nondistended. Bowel sounds present and normoactive in all 4 quadrants. No hepatosplenomegaly. No abdominal bruits auscultated. No hepatojugular reflux. Genitourinary: No suprapubic or CVA tenderness. Skin: Clean, dry, and intact. No rash. Slight ecchymosis to the left lower extremity. Musculoskeletal: Mild tenderness, left lower extremity in an immobilizer. Neuro: Cranial nerves II through XII intact. No focal deficits. Alert and oriented x3. Psychiatric: Pleasant and cooperative. DISCHARGE PLAN BY PROBLEM: 1. Left tibial plateau fracture. The patient will be nonweightbearing on this leg until cleared by Orthopedics. The patient will have an immobilizer for comfort. The patient will mainly use a wheelchair for transfers as well as a walker with a platform to avoid weightbearing on her hand as well. The patient will have Tylenol for pain control. The patient was offered opiate pain medication while in the hospital, but declined and declined at discharge as well. The patient has no signs of vascular or neurologic compromise distal to this wound and no signs of ongoing blood loss related to her fracture or hematoma. The patient will continue on Xarelto for DVT prophylaxis. 2. Fourth metacarpal fracture. The patient has been splinted. The patient will follow up with Orthopedics. The patient should avoid weightbearing on this hand. 3. Fall. The patient's fall sounds to be entirely mechanical. No further cardiac or neurological workup indicated. 4. Atrial fibrillation. The patient will continue on her Xarelto with diltiazem. The patient appeared to be in rate controlled atrial fibrillation while in the hospital. 5. Hypertension. The patient had 2 low blood pressure readings although never symptomatic. The patient will be continued on her home blood pressure medications. 6. Hyperlipidemia. Continue the patient's Lipitor. 7. Diet: The patient will have heart healthy diet as before. CONDITION: Stable. DISPOSITION: Home. TIME SPENT: Approximately 60 minutes was spent on the discharge of this patient , 30 of which was spent [id number]-oy-[id number] with the patient obtaining history and physical and discussing treatment plan. NATHANIEL BUTLER [id number]/[facility] #: [id number] TAI
== END 2019-10-02 15:48 | disposition home or self-care (01) ==
LOC: ED 10:02 → SSU 13:37
PROVIDERS: ADMIT Internal Medicine; ATTEND Internal Medicine
DX: S82.145A Nondisplaced bicondylar fracture of left tibia, initial encounter for closed fracture (principal); S62.305A Unspecified fracture of fourth metacarpal bone, left hand, initial encounter for closed fracture; W19.XXXA Unspecified fall, initial encounter; Y92.9 Unspecified place or not applicable; I48.91 Unspecified atrial fibrillation; I10 Essential (primary) hypertension; M19.90 Unspecified osteoarthritis, unspecified site; Z87.891 Personal history of nicotine dependence; Z79.01 Long term (current) use of anticoagulants; E78.5 Hyperlipidemia, unspecified; Z87.81 Personal history of (healed) traumatic fracture; Z79.899 Other long term (current) drug therapy; M25.40 Effusion, unspecified joint
CPT/HCPCS: 36415; 70450; 70486; 72125; 80053; 81003; 81015; 85025; 87077; 87086; 87186; 99284; A9270-GY; G0378; G8978-GP-CK; G8979-GP-CI; G8987-GO-CK; G8988-GO-CI

== ENCOUNTER 2019-10-10 14:10 | Emergency (ER) | payer MEDICARE, OTHER ==
--- OUTSIDE RECORDS SUMMARY | 2019-10-10 14:26 | XMS REPORT ---
:1940 Author Organization [facility] Care Team Providers Name Role Phone Unavailable [...] Automated blood platelet mean 2019-10-02 05:13:00 Identifier [id number] Result Unknown volume measurement Time 2019-10-02 05:13:00 Test Item Value Reference Range Comments Automated blood platelet mean volume measurement (test code 8.9 fL Unknown Unknown F = 11311-6) Ordering Physician UnknownAutomated blood leukocytes count corrected for nucleated erythrocytes (number/volume)2019-10-02 05:13:00Identifier 16344-0 Result Time 2019-10-02 05:13:00Unknown Test Item Value Reference Range Comments Automated blood leukocytes count 5.2 10^3/uL Unknown Unknown F corrected for nucleated erythrocytes (number/volume) (test code = 33063-8) Ordering Physician UnknownAutomated blood nucleated erythrocytes viseljzll9506- 12-02 05:13:00Identifier 99415-1 Result Time 2019-10-02 05:13:00Unknown Test Item Value Reference Range Comments Automated blood nucleated erythrocytes 0.1 Unknown Unknown F detection (test code = 95429-8) Ordering Physician UnknownAutomated blood hematocrit (percentage)2019-10-02 05: 13:00Identifier 4544-3 Result Time 2019-10-02 05:13:00Unknown Test Item Value Reference Range Comments Automated blood hematocrit (percentage) (test 38 % Unknown Unknown F code = 4544-3) Ordering Physician UnknownAutomated blood monocytes/100 zkicvgmufz1928-85-53 05: 13:00Identifier 5905-5 Result Time 2019-10-02 05:13:00Unknown [...] = 704-7) Ordering Physician UnknownAutomated blood basophils/100 jpgpdllslw7265-53-10 05: 13:00Identifier 706-2 Result Time 2019-10-02 05:13:00Unknown [...] = 711-2) Ordering Physician UnknownAutomated blood eosinophils/100 ulvawgkavp0242-10-35 05:13:00Identifier 713-8 Result Time 2019-10-02 05:13:00Unknown Test [...] = 731-0) Ordering Physician UnknownAutomated blood lymphocytes/100 hgvyetktic8491-96-19 05:13:00Identifier 736-9 Result Time 2019-10-02 05:13:00Unknown Test Item Value Reference Range Comments Automated blood lymphocytes/100 leukocytes 27.9 % Unknown Unknown F (test code = 736-9) Ordering Physician UnknownBlood monocytes automated count (number/volume)2019-10 05:13:00Identifier 742-7 Result Time 2019-10-02 05:13:00Unknown Test Item Value Reference Range Comments Blood monocytes automated count 0.7 10^3/ul Unknown Unknown F (number/volume) (test code = 742-7) Ordering Physician UnknownAutomated blood neutrophils/100 ywoipglahv2831-22-35 05:13:00Identifier 770-8 Result Time 2019-10-02 05:13:00Unknown Test [...] UnknownAutomated erythrocyte mean corpuscular hemoglobin concentration measurement (mass/mfi1731-85-77 05:13:00Identifier 786-4 Result Time 2019-10-02 05:13:00Unknown Test Item Value Reference Range Comments Automated erythrocyte mean corpuscular 34 g/dL Unknown Unknown F hemoglobin concentration measurement (mass/vol (test code = 786-4) Ordering Physician UnknownAutomated erythrocyte mean corpuscular kymgnl3433-62- 02 05:13:00Identifier 787-2 Result Time 2019-10-02 05:13:00Unknown Test Item Value Reference Range Comments Automated erythrocyte mean corpuscular volume 93 fL Unknown Unknown F (test code = 787-2) Ordering Physician UnknownAutomated erythrocyte distribution width tqawl0736-17- 02 05:13:00Identifier 788-0 Result Time 2019-10-02 05:13:00Unknown [...] code = 789-8) Ordering Physician UnknownLymphocyte proliferation snid4308-37-24 05:13: 00Identifier [id number] Result Time 2019-10-02 05:13:00Unknown Test Item Value Reference Range Comments Lymphocyte proliferation test (test 2.9 10^3/ul Unknown Unknown F code = ZSY1180) Ordering Physician UnknownUrine urobilinogen measurement (units/volume) by test iutnt4713-06-92 11:18:00Identifier 47951-2 Result Time 2019-10-01 11:18: 00Unknown Test Item Value Reference Range Comments Urine urobilinogen measurement Negative Unknown Unknown F (units/volume) by test strip (test code = 61995-9) Ordering Physician UnknownUrine bacteria detection by automated vzjnzd9679-17- 01 11:18:00Identifier 30645-6 Result Time 2019-10-01 11:18:00Unknown Test Item Value Reference Range Comments Urine bacteria detection by automated Absent Unknown Unknown F method (test code = 32182-3) Ordering Physician UnknownUrine total bilirubin detection by automated test jpxbk6724-47-00 11:18:00Identifier 04554-5 Result Time 2019-10-01 11:18: 00Unknown Test Item Value Reference Range Comments Urine total bilirubin detection by Negative Unknown Unknown F automated test strip (test code = 72693-3) Ordering Physician UnknownUrine clarity by refractometry wmxbnlgsh7289-47-77 11: 18:00Identifier 20909-2 Result Time 2019-10-01 11:18:00Unknown Test Item Value Reference Range Comments Urine clarity by refractometry automated Cloudy Unknown Unknown F (test code = 79360-3) Ordering Physician UnknownColor of Urine by Eprp7068-90-14 11:18:00Identifier 88496-2 Result Time 2019-10-01 11:18:00Unknown Test Item Value Reference Range Comments Color of Urine by Auto (test code = Yellow Unknown Unknown F 48411-8) Ordering Physician UnknownUrine glucose detection by automated test wvmmh8359-55 -01 11:18:00Identifier 80934-0 Result Time 2019-10-01 11:18:00Unknown Test Item Value Reference Range Comments Urine glucose detection by automated test Negative Unknown Unknown F strip (test code = 41215-3) Ordering Physician UnknownKetones [Mass/volume] in Urine by Automated test zcdwu9495-64-75 11:18:00Identifier 10195-3 Result Time 2019-10-01 11:18: 00Unknown Test Item Value Reference Range Comments Ketones [Mass/volume] in Urine by Negative Unknown Unknown F Automated test strip (test code = 61835-7) Ordering Physician UnknownUrine nitrite detection by automated test dsmrm3711-76 -01 11:18:00Identifier 18710-3 Result Time 2019-10-01 11:18:00Unknown Test Item Value Reference Range Comments Urine nitrite detection by automated test Negative Unknown Unknown F strip (test code = 49776-3) Ordering Physician UnknownProtein [Mass/volume] in Urine by Automated test wgcey9728-69-16 11:18:00Identifier 83119-1 Result Time 2019-10-01 11:18: 00Unknown Test Item Value Reference Range Comments Protein [Mass/volume] in Urine by Negative Unknown Unknown F Automated test strip (test code = 62686-7) Ordering Physician UnknownSpecific gravity of Urine by Refractometry ecgcwahci0473-55-72 11:18:00Identifier 11916-7 Result Time 2019-10-01 11:18: 00Unknown Test Item Value Reference Range Comments Specific gravity of Urine by Refractometry 1.009 Unknown Unknown F automated (test code = 04221-5) Ordering Physician UnknownUrine erythrocytes detection by automated zfqytd868710-01 11:18:00Identifier 02094-6 Result Time 2019-10-01 11:18:00Unknown Test Item Value Reference Range Comments Urine erythrocytes detection by Trace(0-2/hpf) Unknown Unknown F automated method (test code = 52611-3) Ordering Physician UnknownUrine leukocytes detection by automated hewvwi9646-05- 01 11:18:00Identifier 11032-7 Result Time 2019-10-01 11:18:00Unknown Test Item Value Reference Range Comments Urine leukocytes detection by 2+(11-20/hpf) Unknown Unknown F automated method (test code = 35562-7) Ordering Physician UnknownUrine hemoglobin detection by test ovpmn6163-86-46 11: 18:00Identifier 5794-3 Result Time 2019-10-01 11:18:00Unknown Test Item Value Reference Range Comments Urine hemoglobin detection by test strip Negative Unknown Unknown F (test code = 5794-3) Ordering Physician UnknownUrine leukocyte esterase detection by automated test riywk2505-18-88 11:18:00Identifier 67701-9 Result Time 2019-10-01 11:18: 00Unknown Test Item Value Reference Range Comments Urine leukocyte esterase detection by automated 3+ Unknown Unknown F test strip (test code = 31490-3) Ordering Physician UnknownUrine epithelial cells qsxaaovpn4261-00-06 11:18: 00Identifier 23241-2 Result Time 2019-10-01 11:18:00Unknown Test Item Value Reference Range Comments Urine epithelial cells detection (test Present Unknown Unknown F code = 79875-6) Ordering Physician UnknownSerum or plasma alanine aminotransferase measurement ( enzymatic activity/volume)2019-10-01 10:25:00Identifier 1742-6 Result Time 10-01 10:25:00Unknown Test Item Value Reference Range Comments Serum or plasma alanine aminotransferase 19 U/L Unknown Unknown F measurement (enzymatic activity/volume) (test code = 1742-6) Ordering Physician UnknownSerum or plasma albumin/globulin mass iojvb4765-13-83 10:25:00Identifier 1759-0 Result Time 2019-10-01 10:25:00Unknown Test Item Value Reference Range Comments Serum or plasma albumin/globulin mass ratio 1.3 Unknown Unknown F (test code = 1759-0) Ordering Physician UnknownSerum or plasma calcium measurement (mass/volume)10-01 10:25:00Identifier 77175-7 Result Time 2019-10-01 10:25:00Unknown Test Item Value Reference Range Comments Serum or plasma calcium measurement 9.2 mg/dL Unknown Unknown F (mass/volume) (test code = 97862-2) Ordering Physician UnknownSerum or plasma aspartate aminotransferase measurement (enzymatic activity/volume)2019-10-01 10:25:00Identifier 0-8 Result Time 2019-10-01 10:25:00Unknown Test Item Value Reference Range Comments Serum or plasma aspartate aminotransferase 25 U/L Unknown Unknown F measurement (enzymatic activity/volume) (test code = 1919-) Ordering Physician UnknownSerum or plasma total bilirubin [...] Unknown Unknown F (moles/volume) (test code = 5-0) Ordering Physician UnknownSerum or plasma creatinine measurement [...] Ordering Physician UnknownSerum or plasma urea nitrogen/creatinine yanks7796-85- 01 10:25:00Identifier 3097-3 Result Time 2019-10-01 10:25:00Unknown Test Item Value Reference Range Comments Serum or plasma urea nitrogen/creatinine 23.3 Unknown Unknown F ratio (test code = 3097-3) Ordering Physician UnknownSerum or plasma anion ubv9688-24-80 10:25: 00Identifier 86213-1 Result Time 2019-10-01 10:25:00Unknown Test Item Value Reference Range Comments Serum or plasma anion gap (test code = 8 mmol/L Unknown Unknown F 85471-6) Ordering Physician UnknownEstimated glomerular filtration rate (GFR) non- Ndjofuls2444-34-89 10:25:00Identifier 66914-2 Result Time 2019-10-01 10: 25:00Unknown Test Item Value Reference Range Comments Estimated glomerular filtration rate (GFR) 63.3 Unknown Unknown F non- (test code = 82797-7) Ordering Physician UnknownSerum or plasma albumin measurement by bromocresol green (BCG) dye binding method (al5969-90-90 10:25:00Identifier 30472-6 Result Time 2019-10-01 10:25:00Unknown Test Item Value Reference Range Comments Serum or plasma albumin measurement by 3.9 g/dL Unknown Unknown F bromocresol green (BCG) dye binding method (tn (test code = 73213-5) Ordering Physician UnknownSerum or plasma alkaline phosphatase measurement ( enzymatic activity/volume)2019-10-01 10:25:00Identifier 6768-6 Result Time 10-01 10:25:00Unknown Test Item Value Reference Range Comments Serum or plasma alkaline phosphatase 75 U/L Unknown Unknown F measurement (enzymatic activity/volume) (test code = 6768-6) Ordering Physician Unknown
--- OUTSIDE RECORDS SUMMARY | 2019-10-10 14:26 | XMS REPORT ---
:1940 Author Organization [facility] Care Team Providers Name Role Phone Unavailable Unavailable Unavailable Problems This patient has no known problems. Allergies, Adverse Reactions, Alerts Allergy Allergy Status Severity Reaction(s) Onset Inactive Treating Comments Name Type Date Date Clinician Sulfa Unknown Active Unknown Reaction 2019-10 Interface (Sulfonami - de Antibiotic s) Medications Ordered Filled Start [...] Observation Time Observation Value Comments SYSTOLIC mm[Hg] 2019-10-05 18:09:12 110 mm[Hg] mm[Hg] Method: Sit DIASTOLIC mm[Hg] 2019-10-05 18:09:12 80 mm[Hg] mm[Hg] Method: Sit PULSE 2019-10-05 18:09:12 73 /min /min RESP RATE 2019-10-05 18:09:12 16 /min /min TEMP 2019-10-05 18:09:12 97 [degF] Procedures This patient has no known procedures. Results Test Description Test Time Test Comments Text Results Atomic Results Result Comments Automated blood platelet mean 2019-10-02 05:13:00 Identifier 57353-1 Result Unknown volume measurement Time 2019-10-02 05:13:00 Test Item Value Reference Range Comments Automated blood platelet mean volume measurement (test code 8.9 fL Unknown Unknown F = 70359-0) Ordering Physician UnknownAutomated blood leukocytes count corrected for nucleated erythrocytes (number/volume)2019-10-02 05:13:00Identifier 01325-3 Result Time 2019-10-02 05:13:00Unknown Test Item Value Reference Range Comments Automated blood leukocytes count 5.2 10^3/uL Unknown Unknown F corrected for nucleated erythrocytes (number/volume) (test code = 57774-6) Ordering Physician UnknownAutomated blood nucleated erythrocytes dizdxigqd1033- 12-02 05:13:00Identifier 94857-1 Result Time 2019-10-02 05:13:00Unknown Test Item Value Reference Range Comments Automated blood nucleated erythrocytes 0.1 Unknown Unknown F detection (test code = 21948-3) Ordering Physician UnknownAutomated blood hematocrit (percentage)2019-10-02 05: 13:00Identifier 4544-3 Result Time 2019-10-02 05:13:00Unknown Test Item Value Reference Range Comments Automated blood hematocrit (percentage) (test 38 % Unknown Unknown F code = 4544-3) Ordering Physician UnknownAutomated blood monocytes/100 phgplsvbal1727-70-36 05: 13:00Identifier 5905-5 Result Time 2019-10-02 05:13:00Unknown [...] = 704-7) Ordering Physician UnknownAutomated blood basophils/100 hmfajjpwsz3447-51-67 05: 13:00Identifier 706-2 Result Time 2019-10-02 05:13:00Unknown [...] = 711-2) Ordering Physician UnknownAutomated blood eosinophils/100 xrzhxsrdpg5887-97-23 05:13:00Identifier 713-8 Result Time 2019-10-02 05:13:00Unknown Test [...] = 731-0) Ordering Physician UnknownAutomated blood lymphocytes/100 vcyiinmueg0502-85-76 05:13:00Identifier 736-9 Result Time 2019-10-02 05:13:00Unknown Test Item Value Reference Range Comments Automated blood lymphocytes/100 leukocytes 27.9 % Unknown Unknown F (test code = 736-9) Ordering Physician UnknownBlood monocytes automated count (number/volume)2019-10 05:13:00Identifier 742-7 Result Time 2019-10-02 05:13:00Unknown Test Item Value Reference Range Comments Blood monocytes automated count 0.7 10^3/ul Unknown Unknown F (number/volume) (test code = 742-7) Ordering Physician UnknownAutomated blood neutrophils/100 kzoolvgxyd6496-52-17 05:13:00Identifier 770-8 Result Time 2019-10-02 05:13:00Unknown Test [...] UnknownAutomated erythrocyte mean corpuscular hemoglobin concentration measurement (mass/omw2653-06-04 05:13:00Identifier 786-4 Result Time 2019-10-02 05:13:00Unknown Test Item Value Reference Range Comments Automated erythrocyte mean corpuscular 34 g/dL Unknown Unknown F hemoglobin concentration measurement (mass/vol (test code = 786-4) Ordering Physician UnknownAutomated erythrocyte mean corpuscular gbocra6972-21- 02 05:13:00Identifier 787-2 Result Time 2019-10-02 05:13:00Unknown Test Item Value Reference Range Comments Automated erythrocyte mean corpuscular volume 93 fL Unknown Unknown F (test code = 787-2) Ordering Physician UnknownAutomated erythrocyte distribution width zwcut1196-46- 02 05:13:00Identifier 788-0 Result Time 2019-10-02 05:13:00Unknown [...] code = 789-8) Ordering Physician UnknownLymphocyte proliferation meke9891-76-99 05:13: 00Identifier [id number] Result Time 2019-10-02 05:13:00Unknown Test Item Value Reference Range Comments Lymphocyte proliferation test (test 2.9 10^3/ul Unknown Unknown F code = HNQ2049) Ordering Physician UnknownUrine urobilinogen measurement (units/volume) by test vrqqp1654-54-86 11:18:00Identifier 14951-8 Result Time 2019-10-01 11:18: 00Unknown Test Item Value Reference Range Comments Urine urobilinogen measurement Negative Unknown Unknown F (units/volume) by test strip (test code = 94697-3) Ordering Physician UnknownUrine bacteria detection by automated qczsvt0952-34- 01 11:18:00Identifier 59791-3 Result Time 2019-10-01 11:18:00Unknown Test Item Value Reference Range Comments Urine bacteria detection by automated Absent Unknown Unknown F method (test code = 57665-9) Ordering Physician UnknownUrine total bilirubin detection by automated test vgjlk0723-56-62 11:18:00Identifier 54536-2 Result Time 2019-10-01 11:18: 00Unknown Test Item Value Reference Range Comments Urine total bilirubin detection by Negative Unknown Unknown F automated test strip (test code = 98689-6) Ordering Physician UnknownUrine clarity by refractometry nbmquaefq7834-71-01 11: 18:00Identifier 86431-2 Result Time 2019-10-01 11:18:00Unknown Test Item Value Reference Range Comments Urine clarity by refractometry automated Cloudy Unknown Unknown F (test code = 47793-2) Ordering Physician UnknownColor of Urine by Vaqc1049-36-57 11:18:00Identifier 44585-6 Result Time 2019-10-01 11:18:00Unknown Test Item Value Reference Range Comments Color of Urine by Auto (test code = Yellow Unknown Unknown F 13673-8) Ordering Physician UnknownUrine glucose detection by automated test eolny5186-03 -01 11:18:00Identifier 03131-2 Result Time 2019-10-01 11:18:00Unknown Test Item Value Reference Range Comments Urine glucose detection by automated test Negative Unknown Unknown F strip (test code = 50863-5) Ordering Physician UnknownKetones [Mass/volume] in Urine by Automated test xvbvo9387-27-76 11:18:00Identifier 30785-1 Result Time 2019-10-01 11:18: 00Unknown Test Item Value Reference Range Comments Ketones [Mass/volume] in Urine by Negative Unknown Unknown F Automated test strip (test code = 62687-0) Ordering Physician UnknownUrine nitrite detection by automated test oyflu8346-79 -01 11:18:00Identifier 35061-7 Result Time 2019-10-01 11:18:00Unknown Test Item Value Reference Range Comments Urine nitrite detection by automated test Negative Unknown Unknown F strip (test code = 20013-4) Ordering Physician UnknownProtein [Mass/volume] in Urine by Automated test dngdl4372-31-31 11:18:00Identifier 26158-3 Result Time 2019-10-01 11:18: 00Unknown Test Item Value Reference Range Comments Protein [Mass/volume] in Urine by Negative Unknown Unknown F Automated test strip (test code = 25615-1) Ordering Physician UnknownSpecific gravity of Urine by Refractometry djdsqsliv6315-94-95 11:18:00Identifier 27727-4 Result Time 2019-10-01 11:18: 00Unknown Test Item Value Reference Range Comments Specific gravity of Urine by Refractometry 1.009 Unknown Unknown F automated (test code = 21894-6) Ordering Physician UnknownUrine erythrocytes detection by automated scecay187010-01 11:18:00Identifier 43673-2 Result Time 2019-10-01 11:18:00Unknown Test Item Value Reference Range Comments Urine erythrocytes detection by Trace(0-2/hpf) Unknown Unknown F automated method (test code = 86572-7) Ordering Physician UnknownUrine leukocytes detection by automated lyqgel7484-48- 01 11:18:00Identifier 85831-3 Result Time 2019-10-01 11:18:00Unknown Test Item Value Reference Range Comments Urine leukocytes detection by 2+(11-20/hpf) Unknown Unknown F automated method (test code = 56786-9) Ordering Physician UnknownUrine hemoglobin detection by test jhfsi1854-38-66 11: 18:00Identifier 5794-3 Result Time 2019-10-01 11:18:00Unknown Test Item Value Reference Range Comments Urine hemoglobin detection by test strip Negative Unknown Unknown F (test code = 5794-3) Ordering Physician UnknownUrine leukocyte esterase detection by automated test yektv8434-41-30 11:18:00Identifier 40489-3 Result Time 2019-10-01 11:18: 00Unknown Test Item Value Reference Range Comments Urine leukocyte esterase detection by automated 3+ Unknown Unknown F test strip (test code = 27215-8) Ordering Physician UnknownUrine epithelial cells tlcxhuctm0203-56-75 11:18: 00Identifier 44312-3 Result Time 2019-10-01 11:18:00Unknown Test Item Value Reference Range Comments Urine epithelial cells detection (test Present Unknown Unknown F code = 47463-9) Ordering Physician UnknownSerum or plasma alanine aminotransferase measurement ( enzymatic activity/volume)2019-10-01 10:25:00Identifier 1742-6 Result Time 10-01 10:25:00Unknown Test Item Value Reference Range Comments Serum or plasma alanine aminotransferase 19 U/L Unknown Unknown F measurement (enzymatic activity/volume) (test code = 1742-6) Ordering Physician UnknownSerum or plasma albumin/globulin mass duczp1356-57-55 10:25:00Identifier 1759-0 Result Time 2019-10-01 10:25:00Unknown Test Item Value Reference Range Comments Serum or plasma albumin/globulin mass ratio 1.3 Unknown Unknown F (test code = 1759-0) Ordering Physician UnknownSerum or plasma calcium measurement (mass/volume)10-01 10:25:00Identifier 90637-4 Result Time 2019-10-01 10:25:00Unknown Test Item Value Reference Range Comments Serum or plasma calcium measurement 9.2 mg/dL Unknown Unknown F (mass/volume) (test code = 02381-6) Ordering Physician UnknownSerum or plasma aspartate aminotransferase [...] Unknown F measurement (mass/volume) (test code = 1974-12) Ordering Physician UnknownSerum or plasma carbon dioxide, [...] Ordering Physician UnknownSerum or plasma urea nitrogen/creatinine bzwcz9941-61- 01 10:25:00Identifier 3097-3 Result Time 2019-10-01 10:25:00Unknown Test Item Value Reference Range Comments Serum or plasma urea nitrogen/creatinine 23.3 Unknown Unknown F ratio (test code = 3097-3) Ordering Physician UnknownSerum or plasma anion flb1801-84-50 10:25: 00Identifier 69355-8 Result Time 2019-10-01 10:25:00Unknown Test Item Value Reference Range Comments Serum or plasma anion gap (test code = 8 mmol/L Unknown Unknown F 20048-2) Ordering Physician UnknownEstimated glomerular filtration rate (GFR) non- Oloijjof7114-16-08 10:25:00Identifier 12765-3 Result Time 2019-10-01 10: 25:00Unknown Test Item Value Reference Range Comments Estimated glomerular filtration rate (GFR) 63.3 Unknown Unknown F non- (test code = 78327-5) Ordering Physician UnknownSerum or plasma albumin measurement by bromocresol green (BCG) dye binding method (mb1237-22-04 10:25:00Identifier 04250-0 Result Time 2019-10-01 10:25:00Unknown Test Item Value Reference Range Comments Serum or plasma albumin measurement by 3.9 g/dL Unknown Unknown F bromocresol green (BCG) dye binding method (ms (test code = 01839-4) Ordering Physician UnknownSerum or plasma alkaline phosphatase measurement ( enzymatic activity/volume)2019-10-01 10:25:00Identifier 6768-6 Result Time 10-01 10:25:00Unknown Test Item Value Reference Range Comments Serum or plasma alkaline phosphatase 75 U/L Unknown Unknown F measurement (enzymatic activity/volume) (test code = 6768-6) Ordering Physician Unknown
--- OUTSIDE RECORDS SUMMARY | 2019-10-10 14:26 | XMS REPORT ---
:1940 Author Organization [facility] Care Team Providers Name Role Phone Unavailable Unavailable Unavailable Problems Condition Condition Condition Status Onset Resolution Last Treating Comments Name Details Category Date Date Treatment Clinician Date Pain frequent Pain Mgmt Active 2018-11 Carolyn pain 2-05 [place] 09:10: 00 Cardio edema Cardiovasc Active 2018-11 Carolyn cedilloar 2 [place] 09:10: 00 Cardio knowledge/s Cardiovasc Active 2018-11 Carolyn arreola ular 2 [place] deficit: pt 09:10: 00 Cardio knowledge/s Cardiovasc Active 2018-11 Carolyn cedilloar 2 [place] deficit: cg 09:10: 00 Respiratory dyspnea Respirator Active 2018-11 Carolyn johnson 2 [place] 09:10: 00 Endo/Michael knowledge/s Endo/Michael Active 2018-11 Carolyn arreola 2 [place] deficit: pt 09:10: 00 Endo/Michael knowledge/s Endo/Michael Active 2018-11 Carolyn arreola 2 [place] deficit: cg 09:10: 00 Endo/Michael anti-coagul Endo/Michael Active 2018-11 Carolyn ation 2-05 [place] therapy 09:10: 00 Integument knowledge/s Integument Active 2018-11 Carolyn arreola 2-05 [place] deficit: pt 09:10: 00 Integument knowledge/s Integument Active 2018-11 Carolyn arreola 205 [place] deficit: cg 09:10: 00 Nutrition nutritional Nutrition Active 2018-11 Carolyn ndiaye 2-05 [place] s 09:10: 00 Activity ADL Activity Active 2018-11 Carolyn bhardwaj 2-05 [place] required 09:10: 00 Activity knowledge/s Activity Active 2018-11 Carolyn kill 2-05 [place] deficit: pt 09:10: 00 Activity knowledge/s Activity Active 2018-11 Carolyn kill 2-05 [place] deficit: cg 09:10: 00 Activity self-care Activity Active 2018-11 Carolyn deficit 2-05 [place] 09:10: 00 Safety structural Safety Active 2018-11 Carolyn pham 2-05 [place] present 09:10: 00 Safety cannot be Safety Active 2018-11 Carolyn left alone 2-05 [place] 09:10: 00 Safety knowledge/s Safety Active 2018-11 Carolyn kill 2-05 [place] deficit: pt 09:10: 00 Safety knowledge/s Safety Active 2018-11 Carolyn kill 2-05 [place] deficit: cg 09:10: 00 Safety fall risk Safety Active 2018-11 Carolyn horvath 2-05 [place] present 09:10: 00 Safety risk for Safety Active 2018-11 Carolyn mirandajosefinaa 2-05 [place] tion 09:10: 00 Medication oral med Meds Active 2018-11 Carolyn assistance 2-05 [place] required 09:10: 00 Medication potential Meds Active 2018-11 Carolyn clinically 2-05 [place] significant 09:10: medication 00 issue Medication knowledge/s Meds Active 2018-11 Carolyn kill 2-05 [place] deficit: pt 09:10: 00 Medication knowledge/s Meds Active 2018-11 Carolyn kill 2-05 [place] deficit: cg 09:10: 00 Musculoskel transfer Musculoske Active 2018-11 Carolyn etal assistance letal 2-05 [place] required 09:10: 00 Musculoskel knowledge/s Musculoske Active 2018-11 Carolyn etal kill letal 2-05 [place] deficit: pt 09:10: 00 Musculoskel knowledge/s Musculoske Active 2018-11 Carolyn etal kill letal 2-05 [place] deficit: cg 09:10: 00 Musculoskel requires Musculoske Active 2018-11 Carolyn etal human letal 2-05 [place] assist to 09:10: leave home 00 Social support JONA: Active 2018-11 Carolyn Services deficit Social 2-05 [place] Services 09:10: 00 Activity self-care Activity Active 2018-11 Ramesh deficit 2-06 Rivera 11:45: [id number] Medication knowledge/s Meds Active 2018-11 Ramesh arreola 2 Miguel deficit: pt 11:45: [id number] 00 Medication knowledge/s Meds Active 2018-11 Ramesh arreola 12-07 Miguel deficit: cg 11:45: [id number] 00 Musculoskel transfer Musculoske Active 2018-11 Ramesh etal assistance letal 12-07 Rivera required 11:45: [id number] Musculoskel knowledge/s Musculoske Active 2018-11 Ramesh etal kill letal 12-07 Miguel deficit: pt 11:45: [id number] 00 Musculoskel knowledge/s Musculoske Active 2018-11 Ramesh etal kill letal 12-07 Miguel deficit: cg 11:45: [id number] 00 Bed transfer PT/OT: Bed Active 2018-11 Ramesh Mobility/Tr deficit: Mobility/T 2- Rivera ansfer sit/stand ransfer 11:45: [id number] 00 Bed transfer PT/OT: Bed Active 2018-11 Ramesh Mobility/Tr deficit: Mobility/T 2-06 Rivera ansfer standing ransfer 11:45: [id number] pivot 00 Bed transfer PT/OT: Bed Active 2018-11 Ramesh Mobility/Tr deficit: Mobility/T 2-06 Rivera ansfer toilet/comm ransfer 11:45: [id number] 00 Bed knowledge/s PT/OT: Bed Active 2018-11 Ramesh Mobility/Tr kill Mobility/T 2-06 Rivera ansfer deficit: pt ransfer 11:45: [id number] 00 Bed bed PT/OT: Bed Active 2018-11 Ramesh Mobility/Tr mobility Mobility/T 2-06 Rivera ansfer deficit ransfer 11:45: [id number] 00 Balance/End balance/borough coordinator PT/OT: Active 2018-11 Ramesh ranulfo rdination Balance/En 2- Rivera deficit durance 11:45: [id number] 00 Balance/End endurance PT/OT: Active 2018-11 Ramesh ranulfo deficit Balance/En 2- Rivera durance 11:45: [id number] 00 Balance/End knowledge/s PT/OT: Active 2018-11 Ramesh [place] kill Balance/En 2 Miguel deficit: pt durance 11:45: [id number] 00 Environment knowledge/s PT/OT: Active 2018-11 Ramesh ye Environmen 12-07 Rivera deficit: pt t 11:45: [id number] 00 Environment environment PT/OT: Active 2018-11 Ramesh walters barriers Environmen 2- Rivera t 11:45: [id number] 00 Gait/Locomo knowledge/s PT/OT: Active 2018-11 Ramesh price kill Gait/Locom 2-06 Rivera problems deficit: pt otion 11:45: [id number] 00 Gait/Locomo gait PT/OT: Active 2018-11 Ramesh price deficit Gait/Locom 06 Rivera problems otion 11:45: [id number] 00 Allergies, Adverse Reactions, Alerts Allergy Allergy Status Severity Reaction(s) Onset Inactive Treating Comments Name Type Date Date Clinician Sulfa Unknown Active Unknown Reaction 2019-10 Interface (Sulfonami Unknown - de Antibiotic s) Medications Ordered Filled [...] No Unknown Unknown Unknown en en 11-29 lisinopril lisinopril 2018-11 Lorelei Unknown Unknown 40 mg 40 mg 2- 12-05 MD,Kayode A tablet tablet furosemide furosemide 2018-11 Yes Lorelei Unknown Unknown 20 mg 20 mg 2-05 MD,Kayode A tablet tablet Xarelto 20 Xarelto 20 2018-11 Yes Lorelei Unknown Unknown mg tablet mg tablet 2-05 MD,Kayode A lisinopril lisinopril 2018-11 Yes Lorelei Unknown Unknown 40 mg 40 mg 2-05 MD,Kayode A tablet tablet multivitami multivitami 2018-11 Yes Olrelei Unknown Unknown n capsule n capsule 2-05 MD,Kayode A felodipine felodipine 2018-11 Yes Lorelei Unknown Unknown ER 2.5 mg ER 2.5 mg 2-05 MD,Kayode A tablet,exte tablet,exte nded nded release 24 release 24 hr hr Cartia XT Cartia XT 2018-11 Yes Lorelei Unknown Unknown 300 mg 300 mg 2-05 MD,Kayode A capsule,ext capsule,ext ended ended release release pravastatin pravastatin 2018-11 Yes Lorelei Unknown Unknown 80 mg 80 mg 2-05 MD,Kayode A tablet tablet Tylenol Tylenol 2018-11 Yes Lorelei Unknown Unknown Extra Extra 2-05 MD,Kayode A Strength Strength 500 mg 500 mg tablet tablet Vital Signs Vital Name Observation Time Observation Value Comments SYSTOLIC mm[Hg] 2019-10-08 18:09:15 120 mm[Hg] mm[Hg] Method: Sit DIASTOLIC mm[Hg] 2019-10-08 18:09:15 78 mm[Hg] mm[Hg] Method: Sit PULSE 2019-10-08 18:09:15 88 /min /min RESP RATE 2019-10-05 18:09:12 16 /min /min TEMP 2019-10-05 18:09:12 97 [degF] Procedures This patient has no known procedures. Results Test Description Test Time Test Comments Text Results Atomic Results Result Comments Automated blood platelet mean 2019-10-02 05:13:00 Identifier 19540-5 Result Unknown volume measurement Time 2019-10-02 05:13:00 Test Item Value Reference Range Comments Automated blood platelet mean volume measurement (test code 8.9 fL Unknown Unknown F = 60558-2) Ordering Physician UnknownAutomated blood leukocytes count corrected for nucleated erythrocytes (number/volume)2019-10-02 05:13:00Identifier 90634-4 Result Time 2019-10-02 05:13:00Unknown Test Item Value Reference Range Comments Automated blood leukocytes count 5.2 10^3/uL Unknown Unknown F corrected for nucleated erythrocytes (number/volume) (test code = 45718-1) Ordering Physician UnknownAutomated blood nucleated erythrocytes qrouxoagq7723- 12-02 05:13:00Identifier 46854-9 Result Time 2019-10-02 05:13:00Unknown Test Item Value Reference Range Comments Automated blood nucleated erythrocytes 0.1 Unknown Unknown F detection (test code = 93967-0) Ordering Physician UnknownAutomated blood hematocrit (percentage)2019-10-02 05: 13:00Identifier 4544-3 Result Time 2019-10-02 05:13:00Unknown Test Item Value Reference Range Comments Automated blood hematocrit (percentage) (test 38 % Unknown Unknown F code = 4544-3) Ordering Physician UnknownAutomated blood monocytes/100 [id number] 05: 13:00Identifier 5905-5 Result Time 2019-10-02 05:13:00Unknown [...] = 704-7) Ordering Physician UnknownAutomated blood basophils/100 [id number] 05: 13:00Identifier 706-2 Result Time 2019-10-02 05:13:00Unknown [...] = 711-2) Ordering Physician UnknownAutomated blood eosinophils/100 [id number] 05:13:00Identifier 713-8 Result Time 2019-10-02 05:13:00Unknown Test [...] = 731-0) Ordering Physician UnknownAutomated blood lymphocytes/100 [id number] 05:13:00Identifier 736-9 Result Time 2019-10-02 05:13:00Unknown Test Item Value Reference Range Comments Automated blood lymphocytes/100 leukocytes 27.9 % Unknown Unknown F (test code = 736-9) Ordering Physician UnknownBlood monocytes automated count (number/volume)2019-10 05:13:00Identifier 742-7 Result Time 2019-10-02 05:13:00Unknown Test Item Value Reference Range Comments Blood monocytes automated count 0.7 10^3/ul Unknown Unknown F (number/volume) (test code = 742-7) Ordering Physician UnknownAutomated blood neutrophils/100 [id number] 05:13:00Identifier 770-8 Result Time 2019-10-02 05:13:00Unknown Test [...] UnknownAutomated erythrocyte mean corpuscular hemoglobin concentration measurement (mass/lqy0276-47-90 05:13:00Identifier 786-4 Result Time 2019-10-02 05:13:00Unknown Test Item Value Reference Range Comments Automated erythrocyte mean corpuscular 34 g/dL Unknown Unknown F hemoglobin concentration measurement (mass/vol (test code = 786-4) Ordering Physician UnknownAutomated erythrocyte mean corpuscular orztle2066-48- 02 05:13:00Identifier 787-2 Result Time 2019-10-02 05:13:00Unknown Test Item Value Reference Range Comments Automated erythrocyte mean corpuscular volume 93 fL Unknown Unknown F (test code = 787-2) Ordering Physician UnknownAutomated erythrocyte distribution width bkbzd1814-15- 02 05:13:00Identifier 788-0 Result Time 2019-10-02 05:13:00Unknown [...] code = 789-8) Ordering Physician UnknownLymphocyte proliferation [id number] 05:13: 00Identifier [id number] Result Time 2019-10-02 05:13:00Unknown Test Item Value Reference Range Comments Lymphocyte proliferation test (test 2.9 10^3/ul Unknown Unknown F code = ABQ8893) Ordering Physician UnknownUrine urobilinogen measurement (units/volume) by test [id number] 11:18:00Identifier 37840-1 Result Time 2019-10-01 11:18: 00Unknown Test Item Value Reference Range Comments Urine urobilinogen measurement Negative Unknown Unknown F (units/volume) by test strip (test code = 31995-1) Ordering Physician UnknownUrine bacteria detection by automated gswyeo4542-46- 01 11:18:00Identifier 59993-3 Result Time 2019-10-01 11:18:00Unknown Test Item Value Reference Range Comments Urine bacteria detection by automated Absent Unknown Unknown F method (test code = 70132-0) Ordering Physician UnknownUrine total bilirubin detection by automated test [id number] 11:18:00Identifier 39354-4 Result Time 2019-10-01 11:18: 00Unknown Test Item Value Reference Range Comments Urine total bilirubin detection by Negative Unknown Unknown F automated test strip (test code = 52802-5) Ordering Physician UnknownUrine clarity by refractometry [id number] 11: 18:00Identifier 18791-3 Result Time 2019-10-01 11:18:00Unknown Test Item Value Reference Range Comments Urine clarity by refractometry automated Cloudy Unknown Unknown F (test code = 29935-3) Ordering Physician UnknownColor of Urine by [id number] 11:18:00Identifier 10099-7 Result Time 2019-10-01 11:18:00Unknown Test Item Value Reference Range Comments Color of Urine by Auto (test code = Yellow Unknown Unknown F 14500-7) Ordering Physician UnknownUrine glucose detection by automated test migxx2849-02 -01 11:18:00Identifier 58303-0 Result Time 2019-10-01 11:18:00Unknown Test Item Value Reference Range Comments Urine glucose detection by automated test Negative Unknown Unknown F strip (test code = 82446-7) Ordering Physician UnknownKetones [Mass/volume] in Urine by Automated test [id number] 11:18:00Identifier 73200-0 Result Time 2019-10-01 11:18: 00Unknown Test Item Value Reference Range Comments Ketones [Mass/volume] in Urine by Negative Unknown Unknown F Automated test strip (test code = 51612-8) Ordering Physician UnknownUrine nitrite detection by automated test ferxl7151-17 -01 11:18:00Identifier 17219-7 Result Time 2019-10-01 11:18:00Unknown Test Item Value Reference Range Comments Urine nitrite detection by automated test Negative Unknown Unknown F strip (test code = 97848-0) Ordering Physician UnknownProtein [Mass/volume] in Urine by Automated test [id number] 11:18:00Identifier 72892-1 Result Time 2019-10-01 11:18: 00Unknown Test Item Value Reference Range Comments Protein [Mass/volume] in Urine by Negative Unknown Unknown F Automated test strip (test code = 98896-7) Ordering Physician UnknownSpecific gravity of Urine by Refractometry [id number] 11:18:00Identifier 53287-5 Result Time 2019-10-01 11:18: 00Unknown Test Item Value Reference Range Comments Specific gravity of Urine by Refractometry 1.009 Unknown Unknown F automated (test code = 58750-8) Ordering Physician UnknownUrine erythrocytes detection by automated ceffik600010-01 11:18:00Identifier 32456-8 Result Time 2019-10-01 11:18:00Unknown Test Item Value Reference Range Comments Urine erythrocytes detection by Trace(0-2/hpf) Unknown Unknown F automated method (test code = 45229-4) Ordering Physician UnknownUrine leukocytes detection by automated aneobt0459-45- 01 11:18:00Identifier 65539-9 Result Time 2019-10-01 11:18:00Unknown Test Item Value Reference Range Comments Urine leukocytes detection by 2+(11-20/hpf) Unknown Unknown F automated method (test code = 81882-9) Ordering Physician UnknownUrine hemoglobin detection by test [id number] 11: 18:00Identifier 5794-3 Result Time 2019-10-01 11:18:00Unknown Test Item Value Reference Range Comments Urine hemoglobin detection by test strip Negative Unknown Unknown F (test code = 5794-3) Ordering Physician UnknownUrine leukocyte esterase detection by automated test [id number] 11:18:00Identifier 55688-8 Result Time 2019-10-01 11:18: 00Unknown Test Item Value Reference Range Comments Urine leukocyte esterase detection by automated 3+ Unknown Unknown F test strip (test code = 19701-5) Ordering Physician UnknownUrine epithelial cells fmlrofpho4725-78-53 11:18: 00Identifier 01577-2 Result Time 2019-10-01 11:18:00Unknown Test Item Value Reference Range Comments Urine epithelial cells detection (test Present Unknown Unknown F code = 35035-3) Ordering Physician UnknownSerum or plasma alanine aminotransferase measurement ( enzymatic activity/volume)2019-10-01 10:25:00Identifier 1742-6 Result Time 10-01 10:25:00Unknown Test Item Value Reference Range Comments Serum or plasma alanine aminotransferase 19 U/L Unknown Unknown F measurement (enzymatic activity/volume) (test code = 1742-6) Ordering Physician UnknownSerum or plasma albumin/globulin mass [id number] 10:25:00Identifier 1759-0 Result Time 2019-10-01 10:25:00Unknown Test Item Value Reference Range Comments Serum or plasma albumin/globulin mass ratio 1.3 Unknown Unknown F (test code = 1759-0) Ordering Physician UnknownSerum or plasma calcium measurement (mass/volume)10-01 10:25:00Identifier 40570-4 Result Time 2019-10-01 10:25:00Unknown Test Item Value Reference Range Comments Serum or plasma calcium measurement 9.2 mg/dL Unknown Unknown F (mass/volume) (test code = 93023-9) Ordering Physician UnknownSerum or plasma aspartate aminotransferase measurement (enzymatic activity/volume)2019-10-01 10:25:00Identifier 1920-8 Result Time 2019-10-01 10:25:00Unknown Test Item Value Reference Range Comments Serum or plasma aspartate aminotransferase 25 U/L Unknown Unknown F measurement (enzymatic activity/volume) (test code = 1920-8) Ordering Physician UnknownSerum or plasma total bilirubin [...] Ordering Physician UnknownSerum or plasma urea nitrogen/creatinine [id number]- 01 10:25:00Identifier 3097-3 Result Time 2019-10-01 10:25:00Unknown Test Item Value Reference Range Comments Serum or plasma urea nitrogen/creatinine 23.3 Unknown Unknown F ratio (test code = 3097-3) Ordering Physician UnknownSerum or plasma anion [id number] 10:25: 00Identifier 81739-3 Result Time 2019-10-01 10:25:00Unknown Test Item Value Reference Range Comments Serum or plasma anion gap (test code = 8 mmol/L Unknown Unknown F 83015-9) Ordering Physician UnknownEstimated glomerular filtration rate (GFR) non- Hnzscdyn4448-82-10 10:25:00Identifier 43328-5 Result Time 2019-10-01 10: 25:00Unknown Test Item Value Reference Range Comments Estimated glomerular filtration rate (GFR) 63.3 Unknown Unknown F non- (test code = 79603-4) Ordering Physician UnknownSerum or plasma albumin measurement by bromocresol green (BCG) dye binding method ([id number] 10:25:00Identifier 11932-4 Result Time 2019-10-01 10:25:00Unknown Test Item Value Reference Range Comments Serum or plasma albumin measurement by 3.9 g/dL Unknown Unknown F bromocresol green (BCG) dye binding method (ma (test code = 65892-8) Ordering Physician UnknownSerum or plasma alkaline phosphatase measurement ( enzymatic activity/volume)2019-10-01 10:25:00Identifier 6768-6 Result Time 10-01 10:25:00Unknown Test Item Value Reference Range Comments Serum or plasma alkaline phosphatase 75 U/L Unknown Unknown F measurement (enzymatic activity/volume) (test code = 6768-6) Ordering Physician Unknown
--- OUTSIDE RECORDS SUMMARY | 2019-10-10 14:26 | XMS REPORT ---
:1940 Author Organization [facility] Care Team Providers Name Role Phone Unavailable Unavailable Unavailable Problems Condition Condition Condition Status Onset Resolution Last Treating Comments Name Details Category Date Date Treatment Clinician Date Pain frequent Pain Mgmt Active 2018-11 Carolyn finn 2 [place] 09:10: 00 Cardio edema Cardiovasc Active 2018-11 Carolyn murrell 2 [place] 09:10: 00 Cardio knowledge/s Cardiovasc Resolve 2018-112019-10-05 Carolyn montoya 2- 09:10:00 [place] deficit: pt 09:10: 00 Cardio knowledge/s Cardiovasc Resolve 2018-112019-10-05 Carolyn montoya 2- 09:10:00 [place] deficit: cg 09:10: 00 Respiratory dyspnea Respirator Resolve 2018-112019-10-05 Carolyn johnson 12-06 09:10:00 [place] 09:10: 00 Endo/Michael knowledge/s Endo/Michael Resolve 2018-112019-10-05 Carolyn montoya 2-05 09:10:00 [place] deficit: pt 09:10: 00 Endo/Michael knowledge/s Endo/Michael Resolve 2018-112019-10-05 Carolyn montoya 2-05 09:10:00 [place] deficit: cg 09:10: 00 Endo/Michael anti-coagul Endo/Michael Resolve 2018-112019-10-05 Carolyn montoya 2- 09:10:00 [place] therapy 09:10: 00 Integument knowledge/s Integument Resolve 2018-112019-10-05 Carolyn montoya 2- 09:10:00 [place] deficit: pt 09:10: 00 Integument knowledge/s Integument Resolve 2018-112019-10-05 Carolyn arreola d 12-06 09:10:00 [place] deficit: cg 09:10: 00 Nutrition nutritional Nutrition Resolve 2018-112019-10-05 Carolyn restriction d 12-06 09:10:00 [place] s 09:10: 00 Medication oral med Meds Resolve 2018-112019-10-05 Carolyn assistance d 12-06 09:10:00 [place] required 09:10: 00 Medication potential Meds Resolve 2018-112019-10-05 Carolyn clinically d 12-06 09:10:00 [place] significant 09:10: medication 00 issue Social support JONA: Active 2018-11 Carolyn Services deficit Social 12-06 [place] Services 09:10: 00 Allergies, Adverse Reactions, Alerts Allergy Allergy Status Severity Reaction(s) Onset Inactive Treating Comments Name Type Date Date Clinician Sulfa Unknown Active Unknown Reaction 2019-10 Interface (Sulfonami Unknown -02 de Antibiotic s) Medications Ordered Filled Start Stop Current Ordering Indication Dosage Frequency Signature Comments Components Medication Medication Date Date Medication? Clinician (SIG) Name Name furosemide furosemide No Unknown Unknown Unknown 20 mg 20 mg 6-10 tablet tablet lisinopril lisinopril No Unknown Unknown Unknown 10 mg 10 mg 6-10 tablet tablet Rivaroxaban Rivaroxaban No Unknown Unknown Unknown Tab(*) Tab(*) - felodipine felodipine No Unknown Unknown Unknown ER 5 mg ER 5 mg 2-21 tablet,exte tablet,exte nded nded release 24 release 24 hr hr Diltiazem Diltiazem No Unknown Unknown Unknown Xr Extend Xr Extend - Releas(Nf) Releas(Nf) Pravastatin Pravastatin No Unknown Unknown Unknown Sodium Sodium 2-21 Multivit Multivit No Unknown Unknown Unknown With With - Calcium,Iro Calcium,Iro n,Min n,Min Acetaminoph Acetaminoph No Unknown Unknown Unknown en en 11-29 lisinopril lisinopril 2018-11 Lorelei Unknown Unknown 40 mg 40 mg 12-06- MD,Kayode A tablet tablet furosemide furosemide 2018-11 Yes Lorelei Unknown Unknown 20 mg 20 mg 12-06 MD,Kayode A tablet tablet Xarelto 20 Xarelto 20 2018-11 Yes Lorelei Unknown Unknown mg tablet mg tablet 2-05 MD,Kayode A lisinopril lisinopril 2018-11 Yes Lorelei Unknown Unknown 40 mg 40 mg 2-05 MD,Kayode A tablet tablet multivitami multivitami 2018-11 Yes Lorelei Unknown Unknown n capsule n capsule 2-05 [...] Automated blood platelet mean 2019-10-02 05:13:00 Identifier 82897-2 Result Unknown volume measurement Time 2019-10-02 05:13:00 Test Item Value Reference Range Comments Automated blood platelet mean volume measurement (test code 8.9 fL Unknown Unknown F = 08061-0) Ordering Physician UnknownAutomated blood leukocytes count corrected for nucleated erythrocytes (number/volume)2019-10-02 05:13:00Identifier 42791-3 Result Time 2019-10-02 05:13:00Unknown Test Item Value Reference Range Comments Automated blood leukocytes count 5.2 10^3/uL Unknown Unknown F corrected for nucleated erythrocytes (number/volume) (test code = 05900-0) Ordering Physician UnknownAutomated blood nucleated erythrocytes flhoekssu1186- 12-02 05:13:00Identifier 21931-8 Result Time 2019-10-02 05:13:00Unknown Test Item Value Reference Range Comments Automated blood nucleated erythrocytes 0.1 Unknown Unknown F detection (test code = 04862-7) Ordering Physician UnknownAutomated blood hematocrit (percentage)2019-10-02 05: 13:00Identifier 4544-3 Result Time 2019-10-02 05:13:00Unknown Test Item Value Reference Range Comments Automated blood hematocrit (percentage) (test 38 % Unknown Unknown F code = 4544-3) Ordering Physician UnknownAutomated blood monocytes/100 [id number] 05: 13:00Identifier 5905-5 Result Time 2019-10-02 05:13:00Unknown [...] = 704-7) Ordering Physician UnknownAutomated blood basophils/100 [id number] 05: 13:00Identifier 706-2 Result Time 2019-10-02 05:13:00Unknown [...] = 711-2) Ordering Physician UnknownAutomated blood eosinophils/100 [id number] 05:13:00Identifier 713-8 Result Time 2019-10-02 05:13:00Unknown Test [...] = 731-0) Ordering Physician UnknownAutomated blood lymphocytes/100 znxsjxcoco6808-19-64 05:13:00Identifier 736-9 Result Time 2019-10-02 05:13:00Unknown Test Item Value Reference Range Comments Automated blood lymphocytes/100 leukocytes 27.9 % Unknown Unknown F (test code = 736-9) Ordering Physician UnknownBlood monocytes automated count (number/volume)2019-10 05:13:00Identifier 742-7 Result Time 2019-10-02 05:13:00Unknown Test Item Value Reference Range Comments Blood monocytes automated count 0.7 10^3/ul Unknown Unknown F (number/volume) (test code = 742-7) Ordering Physician UnknownAutomated blood neutrophils/100 csdsoiawij6111-70-32 05:13:00Identifier 770-8 Result Time 2019-10-02 05:13:00Unknown Test [...] UnknownAutomated erythrocyte mean corpuscular hemoglobin concentration measurement (mass/hpi7856-24-27 05:13:00Identifier 786-4 Result Time 2019-10-02 05:13:00Unknown Test Item Value Reference Range Comments Automated erythrocyte mean corpuscular 34 g/dL Unknown Unknown F hemoglobin concentration measurement (mass/vol (test code = 786-4) Ordering Physician UnknownAutomated erythrocyte mean corpuscular ernrah4396-34- 02 05:13:00Identifier 787-2 Result Time 2019-10-02 05:13:00Unknown Test Item Value Reference Range Comments Automated erythrocyte mean corpuscular volume 93 fL Unknown Unknown F (test code = 787-2) Ordering Physician UnknownAutomated erythrocyte distribution width gqqef9695-41- 02 05:13:00Identifier 788-0 Result Time 2019-10-02 05:13:00Unknown [...] code = 789-8) Ordering Physician UnknownLymphocyte proliferation mcws4725-69-72 05:13: 00Identifier [id number] Result Time 2019-10-02 05:13:00Unknown Test Item Value Reference Range Comments Lymphocyte proliferation test (test 2.9 10^3/ul Unknown Unknown F code = LFA9017) Ordering Physician UnknownUrine urobilinogen measurement (units/volume) by test mryha8541-16-95 11:18:00Identifier 47637-8 Result Time 2019-10-01 11:18: 00Unknown Test Item Value Reference Range Comments Urine urobilinogen measurement Negative Unknown Unknown F (units/volume) by test strip (test code = 52403-1) Ordering Physician UnknownUrine bacteria detection by automated xocfjb5880-47- 01 11:18:00Identifier 58749-7 Result Time 2019-10-01 11:18:00Unknown Test Item Value Reference Range Comments Urine bacteria detection by automated Absent Unknown Unknown F method (test code = 20887-7) Ordering Physician UnknownUrine total bilirubin detection by automated test iribx9047-62-89 11:18:00Identifier 05828-8 Result Time 2019-10-01 11:18: 00Unknown Test Item Value Reference Range Comments Urine total bilirubin detection by Negative Unknown Unknown F automated test strip (test code = 77428-0) Ordering Physician UnknownUrine clarity by refractometry soilmjpbt5130-36-88 11: 18:00Identifier 92927-4 Result Time 2019-10-01 11:18:00Unknown Test Item Value Reference Range Comments Urine clarity by refractometry automated Cloudy Unknown Unknown F (test code = 99410-6) Ordering Physician UnknownColor of Urine by Pkwi6767-25-44 11:18:00Identifier 55363-6 Result Time 2019-10-01 11:18:00Unknown Test Item Value Reference Range Comments Color of Urine by Auto (test code = Yellow Unknown Unknown F 74769-5) Ordering Physician UnknownUrine glucose detection by automated test teehv0088-91 -01 11:18:00Identifier 08211-1 Result Time 2019-10-01 11:18:00Unknown Test Item Value Reference Range Comments Urine glucose detection by automated test Negative Unknown Unknown F strip (test code = 14704-4) Ordering Physician UnknownKetones [Mass/volume] in Urine by Automated test qslll2850-45-61 11:18:00Identifier 41384-7 Result Time 2019-10-01 11:18: 00Unknown Test Item Value Reference Range Comments Ketones [Mass/volume] in Urine by Negative Unknown Unknown F Automated test strip (test code = 32777-4) Ordering Physician UnknownUrine nitrite detection by automated test wmheg2057-04 -01 11:18:00Identifier 74440-5 Result Time 2019-10-01 11:18:00Unknown Test Item Value Reference Range Comments Urine nitrite detection by automated test Negative Unknown Unknown F strip (test code = 19956-6) Ordering Physician UnknownProtein [Mass/volume] in Urine by Automated test tvkjb0737-90-26 11:18:00Identifier 94171-0 Result Time 2019-10-01 11:18: 00Unknown Test Item Value Reference Range Comments Protein [Mass/volume] in Urine by Negative Unknown Unknown F Automated test strip (test code = 58376-5) Ordering Physician UnknownSpecific gravity of Urine by Refractometry jpqpwmizi0946-52-66 11:18:00Identifier 74926-0 Result Time 2019-10-01 11:18: 00Unknown Test Item Value Reference Range Comments Specific gravity of Urine by Refractometry 1.009 Unknown Unknown F automated (test code = 20175-4) Ordering Physician UnknownUrine erythrocytes detection by automated oqtact311610-01 11:18:00Identifier 01071-0 Result Time 2019-10-01 11:18:00Unknown Test Item Value Reference Range Comments Urine erythrocytes detection by Trace(0-2/hpf) Unknown Unknown F automated method (test code = 36889-4) Ordering Physician UnknownUrine leukocytes detection by automated fhcmni1107-82- 01 11:18:00Identifier 31625-8 Result Time 2019-10-01 11:18:00Unknown Test Item Value Reference Range Comments Urine leukocytes detection by 2+(11-20/hpf) Unknown Unknown F automated method (test code = 75432-3) Ordering Physician UnknownUrine hemoglobin detection by test fkcqp0945-18-74 11: 18:00Identifier 5794-3 Result Time 2019-10-01 11:18:00Unknown Test Item Value Reference Range Comments Urine hemoglobin detection by test strip Negative Unknown Unknown F (test code = 5794-3) Ordering Physician UnknownUrine leukocyte esterase detection by automated test asuya2269-35-10 11:18:00Identifier 97573-8 Result Time 2019-10-01 11:18: 00Unknown Test Item Value Reference Range Comments Urine leukocyte esterase detection by automated 3+ Unknown Unknown F test strip (test code = 27673-1) Ordering Physician UnknownUrine epithelial cells llvvpvwxu5087-07-05 11:18: 00Identifier 81573-4 Result Time 2019-10-01 11:18:00Unknown Test Item Value Reference Range Comments Urine epithelial cells detection (test Present Unknown Unknown F code = 83229-0) Ordering Physician UnknownSerum or plasma alanine aminotransferase measurement ( enzymatic activity/volume)2019-10-01 10:25:00Identifier 1742-6 Result Time 10-01 10:25:00Unknown Test Item Value Reference Range Comments Serum or plasma alanine aminotransferase 19 U/L Unknown Unknown F measurement (enzymatic activity/volume) (test code = 1742-6) Ordering Physician UnknownSerum or plasma albumin/globulin mass zsxpk7430-71-03 10:25:00Identifier 1759-0 Result Time 2019-10-01 10:25:00Unknown Test Item Value Reference Range Comments Serum or plasma albumin/globulin mass ratio 1.3 Unknown Unknown F (test code = 1759-0) Ordering Physician UnknownSerum or plasma calcium measurement (mass/volume)10-01 10:25:00Identifier 11033-3 Result Time 2019-10-01 10:25:00Unknown Test Item Value Reference Range Comments Serum or plasma calcium measurement 9.2 mg/dL Unknown Unknown F (mass/volume) (test code = 47481-2) Ordering Physician UnknownSerum or plasma aspartate aminotransferase [...] Unknown F measurement (mass/volume) (test code = 1975-2) Ordering Physician UnknownSerum or plasma carbon dioxide, [...] Ordering Physician UnknownSerum or plasma urea nitrogen/creatinine mgamb4998-65- 01 10:25:00Identifier 3097-3 Result Time 2019-10-01 10:25:00Unknown Test Item Value Reference Range Comments Serum or plasma urea nitrogen/creatinine 23.3 Unknown Unknown F ratio (test code = 3097-3) Ordering Physician UnknownSerum or plasma anion [id number] 10:25: 00Identifier 69260-2 Result Time 2019-10-01 10:25:00Unknown Test Item Value Reference Range Comments Serum or plasma anion gap (test code = 8 mmol/L Unknown Unknown F 38684-4) Ordering Physician UnknownEstimated glomerular filtration rate (GFR) non- Xyvyyafp3573-67-28 10:25:00Identifier 28522-6 Result Time 2019-10-01 10: 25:00Unknown Test Item Value Reference Range Comments Estimated glomerular filtration rate (GFR) 63.3 Unknown Unknown F non- (test code = 00934-2) Ordering Physician UnknownSerum or plasma albumin measurement by bromocresol green (BCG) dye binding method ([id number] 10:25:00Identifier 49904-8 Result Time 2019-10-01 10:25:00Unknown Test Item Value Reference Range Comments Serum or plasma albumin measurement by 3.9 g/dL Unknown Unknown F bromocresol green (BCG) dye binding method (ma (test code = 53639-7) Ordering Physician UnknownSerum or plasma alkaline phosphatase measurement ( enzymatic activity/volume)2019-10-01 10:25:00Identifier 6768-6 Result Time 10-01 10:25:00Unknown Test Item Value Reference Range Comments Serum or plasma alkaline phosphatase 75 U/L Unknown Unknown F measurement (enzymatic activity/volume) (test code = 6768-6) Ordering Physician Unknown
--- OUTSIDE RECORDS SUMMARY | 2019-10-10 14:26 | XMS REPORT ---
:1940 Author Organization [facility] Care Team Providers Name Role Phone Unavailable [...] deficit: cg 09:10: 00 Activity self-care Activity Resolve 2018-112019-10-05 Carolyn deficit d 2-05 09:10:00 [place]lely 09:10: 00 Safety structural Safety Active 2018-11 Carolyn barriers 2-05 Vallely present 09:10: 00 Safety cannot be Safety Active 2018-11 Carolyn left alone 2-05 Vallely 09:10: 00 Safety knowledge/s Safety Active 2018-11 Carolyn arreola 2-05 Vallely deficit: pt 09:10: 00 Safety knowledge/s Safety Active 2018-11 Carolyn arreola 2-05 Vallely deficit: cg 09:10: 00 Safety fall risk Safety Active 2018-11 Carolyn horvath 2-05 Vallely present 09:10: 00 Safety risk for Safety Active 2018-11 Carolyn erlindaa 2-05 Vallely tion 09:10: 00 Medication oral med Meds Active 2018-11 Carolyn assistance 2-05 Vallely required 09:10: 00 Medication potential Meds Active 2018-11 Carolyn shetty 2-05 Vallely significant 09:10: medication 00 issue Medication knowledge/s Meds Resolve 2018-112019-10-05 Carolyn arreola d 2-05 09:10:00 Vallely deficit: pt 09:10: 00 Medication knowledge/s Meds Resolve 2018-112019-10-05 Carolyn arreola d 2-05 09:10:00 Vallely deficit: cg 09:10: 00 Musculoskel transfer Musculoske Resolve 2018-112019-10-05 Carolyn etal assistance letal d 2-05 09:10:00 Vallely required 09:10: 00 Musculoskel knowledge/s Musculoske Resolve 2018-112019-10-05 Carolyn etal kill letal d 2-05 09:10:00 Vallely deficit: pt 09:10: 00 Musculoskel knowledge/s Musculoske Resolve 2018-112019-10-05 Carolyn etal kill letal d 2-05 09:10:00 Vallely deficit: cg 09:10: 00 Musculoskel requires Musculoske Resolve 2018-112019-10-05 Carolyn etal human letal d 12-06 09:10:00 Vallely assist to 09:10: leave home 00 Social support JONA: Active 2018-11 Carolyn Services deficit Social 12-06 [facility] 09:10: 00 Allergies, Adverse Reactions, Alerts [...] Unknown Unknown Unknown Xr Extend Xr Extend -21 Releas(Nf) Releas(Nf) Pravastatin Pravastatin No Unknown Unknown Unknown Sodium Sodium 2-21 Multivit Multivit No Unknown Unknown Unknown With With 2- Calcium,Iro Calcium,Iro n,Min n,Min Acetaminoph Acetaminoph No Unknown Unknown Unknown en en 11-29 lisinopril lisinopril 2018-11- Yes Lorelei Unknown Unknown 40 mg 40 mg 2- 12- MD,Kayode A tablet tablet furosemide furosemide 2018-11 [...] Automated blood platelet mean 2019-10-02 05:13:00 Identifier 82023-2 Result Unknown volume measurement Time 2019-10-02 05:13:00 Test Item Value Reference Range Comments Automated blood platelet mean volume measurement (test code 8.9 fL Unknown Unknown F = 43813-2) Ordering Physician UnknownAutomated blood leukocytes count corrected for nucleated erythrocytes (number/volume)2019-10-02 05:13:00Identifier 88259-1 Result Time 2019-10-02 05:13:00Unknown Test Item Value Reference Range Comments Automated blood leukocytes count 5.2 10^3/uL Unknown Unknown F corrected for nucleated erythrocytes (number/volume) (test code = 61486-1) Ordering Physician UnknownAutomated blood nucleated erythrocytes ktqnaustz7370- 12-02 05:13:00Identifier 87171-7 Result Time 2019-10-02 05:13:00Unknown Test Item Value Reference Range Comments Automated blood nucleated erythrocytes 0.1 Unknown Unknown F detection (test code = 92374-1) Ordering Physician UnknownAutomated blood hematocrit (percentage)2019-10-02 05: 13:00Identifier 4544-3 Result Time 2019-10-02 05:13:00Unknown Test Item Value Reference Range Comments Automated blood hematocrit (percentage) (test 38 % Unknown Unknown F code = 4544-3) Ordering Physician UnknownAutomated blood monocytes/100 ncodnaqkpx7329-96-38 05: 13:00Identifier 5905-5 Result Time 2019-10-02 05:13:00Unknown [...] = 704-7) Ordering Physician UnknownAutomated blood basophils/100 chklspffoq0814-52-06 05: 13:00Identifier 706-2 Result Time 2019-10-02 05:13:00Unknown [...] = 711-2) Ordering Physician UnknownAutomated blood eosinophils/100 tixuzxlsbt2685-10-84 05:13:00Identifier 713-8 Result Time 2019-10-02 05:13:00Unknown Test [...] = 731-0) Ordering Physician UnknownAutomated blood lymphocytes/100 hlvblzfiqb5348-77-81 05:13:00Identifier 736-9 Result Time 2019-10-02 05:13:00Unknown Test Item Value Reference Range Comments Automated blood lymphocytes/100 leukocytes 27.9 % Unknown Unknown F (test code = 736-9) Ordering Physician UnknownBlood monocytes automated count (number/volume)2019-10 05:13:00Identifier 742-7 Result Time 2019-10-02 05:13:00Unknown Test Item Value Reference Range Comments Blood monocytes automated count 0.7 10^3/ul Unknown Unknown F (number/volume) (test code = 742-7) Ordering Physician UnknownAutomated blood neutrophils/100 ravurtjfiu2166-66-82 05:13:00Identifier 770-8 Result Time 2019-10-02 05:13:00Unknown Test [...] UnknownAutomated erythrocyte mean corpuscular hemoglobin concentration measurement (mass/nht4983-01-71 05:13:00Identifier 786-4 Result Time 2019-10-02 05:13:00Unknown Test Item Value Reference Range Comments Automated erythrocyte mean corpuscular 34 g/dL Unknown Unknown F hemoglobin concentration measurement (mass/vol (test code = 786-4) Ordering Physician UnknownAutomated erythrocyte mean corpuscular fibwon9278-60- 02 05:13:00Identifier 787-2 Result Time 2019-10-02 05:13:00Unknown Test Item Value Reference Range Comments Automated erythrocyte mean corpuscular volume 93 fL Unknown Unknown F (test code = 787-2) Ordering Physician UnknownAutomated erythrocyte distribution width qzyag4037-10- 02 05:13:00Identifier 788-0 Result Time 2019-10-02 05:13:00Unknown [...] code = 789-8) Ordering Physician UnknownLymphocyte proliferation rcyq2904-64-96 05:13: 00Identifier [id number] Result Time 2019-10-02 05:13:00Unknown Test Item Value Reference Range Comments Lymphocyte proliferation test (test 2.9 10^3/ul Unknown Unknown F code = MZU9888) Ordering Physician UnknownUrine urobilinogen measurement (units/volume) by test txaja5021-05-33 11:18:00Identifier 15616-6 Result Time 2019-10-01 11:18: 00Unknown Test Item Value Reference Range Comments Urine urobilinogen measurement Negative Unknown Unknown F (units/volume) by test strip (test code = 00721-4) Ordering Physician UnknownUrine bacteria detection by automated vwgfgc0637-10- 01 11:18:00Identifier 20806-0 Result Time 2019-10-01 11:18:00Unknown Test Item Value Reference Range Comments Urine bacteria detection by automated Absent Unknown Unknown F method (test code = 62590-2) Ordering Physician UnknownUrine total bilirubin detection by automated test jjltr2129-73-61 11:18:00Identifier 70216-2 Result Time 2019-10-01 11:18: 00Unknown Test Item Value Reference Range Comments Urine total bilirubin detection by Negative Unknown Unknown F automated test strip (test code = 55825-1) Ordering Physician UnknownUrine clarity by refractometry oixtdxjvh3938-36-39 11: 18:00Identifier 55876-7 Result Time 2019-10-01 11:18:00Unknown Test Item Value Reference Range Comments Urine clarity by refractometry automated Cloudy Unknown Unknown F (test code = 55843-8) Ordering Physician UnknownColor of Urine by Vrgz1599-53-01 11:18:00Identifier 75727-7 Result Time 2019-10-01 11:18:00Unknown Test Item Value Reference Range Comments Color of Urine by Auto (test code = Yellow Unknown Unknown F 51313-9) Ordering Physician UnknownUrine glucose detection by automated test puend4382-57 -01 11:18:00Identifier 90779-4 Result Time 2019-10-01 11:18:00Unknown Test Item Value Reference Range Comments Urine glucose detection by automated test Negative Unknown Unknown F strip (test code = 71697-0) Ordering Physician UnknownKetones [Mass/volume] in Urine by Automated test exlem7734-36-39 11:18:00Identifier 02649-8 Result Time 2019-10-01 11:18: 00Unknown Test Item Value Reference Range Comments Ketones [Mass/volume] in Urine by Negative Unknown Unknown F Automated test strip (test code = 45433-7) Ordering Physician UnknownUrine nitrite detection by automated test uhyki7274-41 -01 11:18:00Identifier 01205-1 Result Time 2019-10-01 11:18:00Unknown Test Item Value Reference Range Comments Urine nitrite detection by automated test Negative Unknown Unknown F strip (test code = 39803-8) Ordering Physician UnknownProtein [Mass/volume] in Urine by Automated test eazin8114-32-06 11:18:00Identifier 14051-7 Result Time 2019-10-01 11:18: 00Unknown Test Item Value Reference Range Comments Protein [Mass/volume] in Urine by Negative Unknown Unknown F Automated test strip (test code = 93203-6) Ordering Physician UnknownSpecific gravity of Urine by Refractometry yeydvlafa2563-56-31 11:18:00Identifier 82402-4 Result Time 2019-10-01 11:18: 00Unknown Test Item Value Reference Range Comments Specific gravity of Urine by Refractometry 1.009 Unknown Unknown F automated (test code = 24794-2) Ordering Physician UnknownUrine erythrocytes detection by automated psgyyc249910-01 11:18:00Identifier 65019-5 Result Time 2019-10-01 11:18:00Unknown Test Item Value Reference Range Comments Urine erythrocytes detection by Trace(0-2/hpf) Unknown Unknown F automated method (test code = 14110-3) Ordering Physician UnknownUrine leukocytes detection by automated alzwbj4332-89- 01 11:18:00Identifier 90309-3 Result Time 2019-10-01 11:18:00Unknown Test Item Value Reference Range Comments Urine leukocytes detection by 2+(11-20/hpf) Unknown Unknown F automated method (test code = 87418-6) Ordering Physician UnknownUrine hemoglobin detection by test domyd6444-71-41 11: 18:00Identifier 5794-3 Result Time 2019-10-01 11:18:00Unknown Test Item Value Reference Range Comments Urine hemoglobin detection by test strip Negative Unknown Unknown F (test code = 5794-3) Ordering Physician UnknownUrine leukocyte esterase detection by automated test iprdp4380-95-85 11:18:00Identifier 70914-1 Result Time 2019-10-01 11:18: 00Unknown Test Item Value Reference Range Comments Urine leukocyte esterase detection by automated 3+ Unknown Unknown F test strip (test code = 89318-7) Ordering Physician UnknownUrine epithelial cells avzxbadng4703-51-84 11:18: 00Identifier 79158-1 Result Time 2019-10-01 11:18:00Unknown Test Item Value Reference Range Comments Urine epithelial cells detection (test Present Unknown Unknown F code = 75229-6) Ordering Physician UnknownSerum or plasma alanine aminotransferase measurement ( enzymatic activity/volume)2019-10-01 10:25:00Identifier 1742-6 Result Time 10-01 10:25:00Unknown Test Item Value Reference Range Comments Serum or plasma alanine aminotransferase 19 U/L Unknown Unknown F measurement (enzymatic activity/volume) (test code = 1742-6) Ordering Physician UnknownSerum or plasma albumin/globulin mass erhbb6151-07-80 10:25:00Identifier 1759-0 Result Time 2019-10-01 10:25:00Unknown Test Item Value Reference Range Comments Serum or plasma albumin/globulin mass ratio 1.3 Unknown Unknown F (test code = 1759-0) Ordering Physician UnknownSerum or plasma calcium measurement (mass/volume)10-01 10:25:00Identifier 30166-2 Result Time 2019-10-01 10:25:00Unknown Test Item Value Reference Range Comments Serum or plasma calcium measurement 9.2 mg/dL Unknown Unknown F (mass/volume) (test code = 79904-2) Ordering Physician UnknownSerum or plasma aspartate aminotransferase [...] carbon dioxide, total measurement ( moles/volume)2019-10-01 10:25:00Identifier 2028-07 Result Time 2019-10-01 10:25: 00Unknown Test Item Value Reference Range Comments Serum or plasma carbon dioxide, total 27 mmol/L Unknown Unknown F measurement (moles/volume) (test code = 2027-) Ordering Physician UnknownSerum or plasma chloride measurement (moles/volume) 2019-10-01 10:25:00Identifier 2075-0 Result Time 2019-10-01 10:25:00Unknown Test Item Value Reference Range Comments Serum or plasma chloride measurement 103 mmol/L Unknown Unknown F (moles/volume) (test code = 2075-0) Ordering Physician UnknownSerum or plasma creatinine measurement [...] Ordering Physician UnknownSerum or plasma urea nitrogen/creatinine dghye9815-76- 01 10:25:00Identifier 3097-3 Result Time 2019-10-01 10:25:00Unknown Test Item Value Reference Range Comments Serum or plasma urea nitrogen/creatinine 23.3 Unknown Unknown F ratio (test code = 3097-3) Ordering Physician UnknownSerum or plasma anion egq2927-46-81 10:25: 00Identifier 84027-6 Result Time 2019-10-01 10:25:00Unknown Test Item Value Reference Range Comments Serum or plasma anion gap (test code = 8 mmol/L Unknown Unknown F 40534-4) Ordering Physician UnknownEstimated glomerular filtration rate (GFR) non- Yzsrfhvu0635-18-63 10:25:00Identifier 19855-8 Result Time 2019-10-01 10: 25:00Unknown Test Item Value Reference Range Comments Estimated glomerular filtration rate (GFR) 63.3 Unknown Unknown F non- (test code = 63554-2) Ordering Physician UnknownSerum or plasma albumin measurement by bromocresol green (BCG) dye binding method (yv0890-46-64 10:25:00Identifier 86192-1 Result Time 2019-10-01 10:25:00Unknown Test Item Value Reference Range Comments Serum or plasma albumin measurement by 3.9 g/dL Unknown Unknown F bromocresol green (BCG) dye binding method (ma (test code = 44688-5) Ordering Physician UnknownSerum or plasma alkaline phosphatase measurement ( enzymatic activity/volume)2019-10-01 10:25:00Identifier 6768-6 Result Time 10-01 10:25:00Unknown Test Item Value Reference Range Comments Serum or plasma alkaline phosphatase 75 U/L Unknown Unknown F measurement (enzymatic activity/volume) (test code = 6768-6) Ordering Physician Unknown
--- OUTSIDE RECORDS SUMMARY | 2019-10-10 14:26 | XMS REPORT ---
:1940 Author Organization [facility] Care Team Providers Name Role Phone [...] Automated blood platelet mean 2019-10-02 05:13:00 Identifier 22241-0 Result Unknown volume measurement Time 2019-10-02 05:13:00 Test Item Value Reference Range Comments Automated blood platelet mean volume measurement (test code 8.9 fL Unknown Unknown F = 48050-1) Ordering Physician UnknownAutomated blood leukocytes count corrected for nucleated erythrocytes (number/volume)2019-10-02 05:13:00Identifier 46070-9 Result Time 2019-10-02 05:13:00Unknown Test Item Value Reference Range Comments Automated blood leukocytes count 5.2 10^3/uL Unknown Unknown F corrected for nucleated erythrocytes (number/volume) (test code = 87470-8) Ordering Physician UnknownAutomated blood nucleated erythrocytes gsjyohwqj3723- 12-02 05:13:00Identifier 06751-8 Result Time 2019-10-02 05:13:00Unknown Test Item Value Reference Range Comments Automated blood nucleated erythrocytes 0.1 Unknown Unknown F detection (test code = 91680-3) Ordering Physician UnknownAutomated blood hematocrit (percentage)2019-10-02 05: 13:00Identifier 4544-3 Result Time 2019-10-02 05:13:00Unknown Test Item Value Reference Range Comments Automated blood hematocrit (percentage) (test 38 % Unknown Unknown F code = 4544-3) Ordering Physician UnknownAutomated blood monocytes/100 lnsauxjjxl2940-70-99 05: 13:00Identifier 5905-5 Result Time 2019-10-02 05:13:00Unknown [...] = 704-7) Ordering Physician UnknownAutomated blood basophils/100 nwehswmcym2989-34-94 05: 13:00Identifier 706-2 Result Time 2019-10-02 05:13:00Unknown [...] = 711-2) Ordering Physician UnknownAutomated blood eosinophils/100 ybnmtqqghn1860-94-33 05:13:00Identifier 713-8 Result Time 2019-10-02 05:13:00Unknown Test [...] = 731-0) Ordering Physician UnknownAutomated blood lymphocytes/100 amfzwoahbv2891-63-89 05:13:00Identifier 736-9 Result Time 2019-10-02 05:13:00Unknown Test Item Value Reference Range Comments Automated blood lymphocytes/100 leukocytes 27.9 % Unknown Unknown F (test code = 736-9) Ordering Physician UnknownBlood monocytes automated count (number/volume)2019-10 05:13:00Identifier 742-7 Result Time 2019-10-02 05:13:00Unknown Test Item Value Reference Range Comments Blood monocytes automated count 0.7 10^3/ul Unknown Unknown F (number/volume) (test code = 742-7) Ordering Physician UnknownAutomated blood neutrophils/100 pwxenudnmi2113-37-12 05:13:00Identifier 770-8 Result Time 2019-10-02 05:13:00Unknown Test [...] UnknownAutomated erythrocyte mean corpuscular hemoglobin concentration measurement (mass/ldu0967-63-04 05:13:00Identifier 786-4 Result Time 2019-10-02 05:13:00Unknown Test Item Value Reference Range Comments Automated erythrocyte mean corpuscular 34 g/dL Unknown Unknown F hemoglobin concentration measurement (mass/vol (test code = 786-4) Ordering Physician UnknownAutomated erythrocyte mean corpuscular uiitmp1505-27- 02 05:13:00Identifier 787-2 Result Time 2019-10-02 05:13:00Unknown Test Item Value Reference Range Comments Automated erythrocyte mean corpuscular volume 93 fL Unknown Unknown F (test code = 787-2) Ordering Physician UnknownAutomated erythrocyte distribution width fsvel6660-99- 02 05:13:00Identifier 788-0 Result Time 2019-10-02 05:13:00Unknown [...] code = 789-8) Ordering Physician UnknownLymphocyte proliferation aykq2273-68-64 05:13: 00Identifier [id number] Result Time 2019-10-02 05:13:00Unknown Test Item Value Reference Range Comments Lymphocyte proliferation test (test 2.9 10^3/ul Unknown Unknown F code = YWG9130) Ordering Physician UnknownUrine urobilinogen measurement (units/volume) by test hwaju8767-07-11 11:18:00Identifier 20412-4 Result Time 2019-10-01 11:18: 00Unknown Test Item Value Reference Range Comments Urine urobilinogen measurement Negative Unknown Unknown F (units/volume) by test strip (test code = 45545-0) Ordering Physician UnknownUrine bacteria detection by automated plpqyq7779-45- 01 11:18:00Identifier 16919-5 Result Time 2019-10-01 11:18:00Unknown Test Item Value Reference Range Comments Urine bacteria detection by automated Absent Unknown Unknown F method (test code = 10650-5) Ordering Physician UnknownUrine total bilirubin detection by automated test fmbhq1478-74-78 11:18:00Identifier 60561-7 Result Time 2019-10-01 11:18: 00Unknown Test Item Value Reference Range Comments Urine total bilirubin detection by Negative Unknown Unknown F automated test strip (test code = 68333-1) Ordering Physician UnknownUrine clarity by refractometry nsqarggnc9200-85-58 11: 18:00Identifier 90425-0 Result Time 2019-10-01 11:18:00Unknown Test Item Value Reference Range Comments Urine clarity by refractometry automated Cloudy Unknown Unknown F (test code = 10280-6) Ordering Physician UnknownColor of Urine by Sbrw9133-67-86 11:18:00Identifier 29195-2 Result Time 2019-10-01 11:18:00Unknown Test Item Value Reference Range Comments Color of Urine by Auto (test code = Yellow Unknown Unknown F 48732-1) Ordering Physician UnknownUrine glucose detection by automated test kbqvv1823-58 -01 11:18:00Identifier 03890-6 Result Time 2019-10-01 11:18:00Unknown Test Item Value Reference Range Comments Urine glucose detection by automated test Negative Unknown Unknown F strip (test code = 20324-3) Ordering Physician UnknownKetones [Mass/volume] in Urine by Automated test lgonx3516-09-39 11:18:00Identifier 59264-0 Result Time 2019-10-01 11:18: 00Unknown Test Item Value Reference Range Comments Ketones [Mass/volume] in Urine by Negative Unknown Unknown F Automated test strip (test code = 31547-3) Ordering Physician UnknownUrine nitrite detection by automated test etjpf8504-52 -01 11:18:00Identifier 09149-9 Result Time 2019-10-01 11:18:00Unknown Test Item Value Reference Range Comments Urine nitrite detection by automated test Negative Unknown Unknown F strip (test code = 64293-2) Ordering Physician UnknownProtein [Mass/volume] in Urine by Automated test xlsor5894-13-79 11:18:00Identifier 73067-8 Result Time 2019-10-01 11:18: 00Unknown Test Item Value Reference Range Comments Protein [Mass/volume] in Urine by Negative Unknown Unknown F Automated test strip (test code = 63619-6) Ordering Physician UnknownSpecific gravity of Urine by Refractometry lnwbwjukl8382-39-57 11:18:00Identifier 48810-4 Result Time 2019-10-01 11:18: 00Unknown Test Item Value Reference Range Comments Specific gravity of Urine by Refractometry 1.009 Unknown Unknown F automated (test code = 33213-2) Ordering Physician UnknownUrine erythrocytes detection by automated twjszr692310-01 11:18:00Identifier 71100-1 Result Time 2019-10-01 11:18:00Unknown Test Item Value Reference Range Comments Urine erythrocytes detection by Trace(0-2/hpf) Unknown Unknown F automated method (test code = 81170-0) Ordering Physician UnknownUrine leukocytes detection by automated bogxqp9432-56- 01 11:18:00Identifier 47615-3 Result Time 2019-10-01 11:18:00Unknown Test Item Value Reference Range Comments Urine leukocytes detection by 2+(11-20/hpf) Unknown Unknown F automated method (test code = 24671-3) Ordering Physician UnknownUrine hemoglobin detection by test currw9213-01-82 11: 18:00Identifier 5794-3 Result Time 2019-10-01 11:18:00Unknown Test Item Value Reference Range Comments Urine hemoglobin detection by test strip Negative Unknown Unknown F (test code = 5794-3) Ordering Physician UnknownUrine leukocyte esterase detection by automated test bwncd9762-42-08 11:18:00Identifier 26137-7 Result Time 2019-10-01 11:18: 00Unknown Test Item Value Reference Range Comments Urine leukocyte esterase detection by automated 3+ Unknown Unknown F test strip (test code = 64997-8) Ordering Physician UnknownUrine epithelial cells noqjblfzx9488-92-21 11:18: 00Identifier 41434-8 Result Time 2019-10-01 11:18:00Unknown Test Item Value Reference Range Comments Urine epithelial cells detection (test Present Unknown Unknown F code = 12931-3) Ordering Physician UnknownSerum or plasma alanine aminotransferase measurement ( enzymatic activity/volume)2019-10-01 10:25:00Identifier 1742-6 Result Time 10-01 10:25:00Unknown Test Item Value Reference Range Comments Serum or plasma alanine aminotransferase 19 U/L Unknown Unknown F measurement (enzymatic activity/volume) (test code = 1742-6) Ordering Physician UnknownSerum or plasma albumin/globulin mass dbmya8573-73-12 10:25:00Identifier 1759-0 Result Time 2019-10-01 10:25:00Unknown Test Item Value Reference Range Comments Serum or plasma albumin/globulin mass ratio 1.3 Unknown Unknown F (test code = 1759-0) Ordering Physician UnknownSerum or plasma calcium measurement (mass/volume)10-01 10:25:00Identifier 38897-0 Result Time 2019-10-01 10:25:00Unknown Test Item Value Reference Range Comments Serum or plasma calcium measurement 9.2 mg/dL Unknown Unknown F (mass/volume) (test code = 41479-9) Ordering Physician UnknownSerum or plasma aspartate aminotransferase [...] Ordering Physician UnknownSerum or plasma urea nitrogen/creatinine awwhn3208-92- 01 10:25:00Identifier 3097-3 Result Time 2019-10-01 10:25:00Unknown Test Item Value Reference Range Comments Serum or plasma urea nitrogen/creatinine 23.3 Unknown Unknown F ratio (test code = 3097-3) Ordering Physician UnknownSerum or plasma anion ruv0471-93-75 10:25: 00Identifier 65722-8 Result Time 2019-10-01 10:25:00Unknown Test Item Value Reference Range Comments Serum or plasma anion gap (test code = 8 mmol/L Unknown Unknown F 46305-0) Ordering Physician UnknownEstimated glomerular filtration rate (GFR) non- Csvrefte0204-19-27 10:25:00Identifier 00083-4 Result Time 2019-10-01 10: 25:00Unknown Test Item Value Reference Range Comments Estimated glomerular filtration rate (GFR) 63.3 Unknown Unknown F non- (test code = 18755-6) Ordering Physician UnknownSerum or plasma albumin measurement by bromocresol green (BCG) dye binding method (sa2521-58-82 10:25:00Identifier 90738-4 Result Time 2019-10-01 10:25:00Unknown Test Item Value Reference Range Comments Serum or plasma albumin measurement by 3.9 g/dL Unknown Unknown F bromocresol green (BCG) dye binding method (mi (test code = 46895-2) Ordering Physician UnknownSerum or plasma alkaline phosphatase measurement ( enzymatic activity/volume)2019-10-01 10:25:00Identifier 6768-6 Result Time 10-01 10:25:00Unknown Test Item Value Reference Range Comments Serum or plasma alkaline phosphatase 75 U/L Unknown Unknown F measurement (enzymatic activity/volume) (test code = 6768-6) Ordering Physician Unknown
--- NOTE | 2019-10-10 14:34 | ED ---
Lower Extremity - HPI Summary HPI Summary: 79-year-old female with significant past medical history of persistent atrial fibrillation treated with anticoagulation, hypertension reports the emergency department today complaining of pain and swelling in her left leg. She reports a 2 out of 10 pain from her left knee to her toes which is made worse with ambulation and palpation of the left calf. She endorses warmth near her left knee and cool "clammy" skin near her left foot. She was sent here due to visiting nurse services Concern for blood clot. She denies past history of DVT or blood clots. She denies recent surgery or travel but did sustain a fall October 01 2019 where she sustained a left tibial plateau fracture. She states she currently is on xarelto for her atrial fibrillation. Patient denies fever, chest pain, abdominal pain, shortness of breath, pain with urination, rash. - History of Current Complaint Chief Complaint: EDExtremityLower Stated Complaint: LT LEG ISSUE PER Time Seen by Provider: 10/10/19 14:34 Hx Obtained From: Patient Mechanism Of Injury: Unknown Onset of Pain: Days, Prior to Arrival Onset/Duration: Weeks Severity Initially: Mild Severity Currently: Mild Pain Intensity: 2 Pain Scale Used: 0-10 Numeric Timing: Constant Character Of Pain: Aching Associated Signs And Symptoms: Positive: Swelling, Redness, Bruising, Knee Pain. Negative: Fever, Weakness Aggravating Factor(s): Ambulation, Movement, Weight Bearing, Stairs Alleviating Factor(s): Rest, Elevation Able to Bear Weight: Yes - Allergies/Home Medications Allergies/Adverse Reactions: Allergies Allergy/AdvReac Type Severity Reaction Status Date / Time Sulfa (Sulfonamide Allergy Rash Verified 10/01/19 10:08 Antibiotics) PMH/Surg Hx/FS Hx/Imm Hx Endocrine/Hematology History: Denies: Hx Diabetes Cardiovascular History: Reports: Hx Atrial Fibrillation, Hx Hypertension, Other Cardiovascular Problems/Disorders - a fib Denies: Hx Hypercholesterolemia, Hx Pacemaker/ICD Respiratory History: Denies: Other Respiratory Problems/Disorders GI History: Denies: Other GI Disorders History: Denies: Hx Renal Disease Musculoskeletal History: Reports: Hx Arthritis - HANDS, KNEES, HIPS, Hx Back Problems - L5 comp fx, laminectomy, lumbar stenosis, Hx Osteoporosis Denies: Hx Bursitis, Other Musculoskeletal History Sensory History: Reports: Hx Cataracts - radhika, Hx Contacts or Glasses - GLASSES, Hx Hearing Aid - radhika Opthamlomology History: Reports: Hx Cataracts - radhika, Hx Contacts or Glasses - GLASSES Neurological History: Denies: Other Neuro Impairments/Disorders Psychiatric History: Denies: Hx Panic Disorder - Surgical History Surgery Procedure, Year, and Place: [place] [facility] [place]. append[place]. [place], 2013[place] [facility] [place] Anesthesia Reactions: No Infectious Disease History: No Infectious Disease History: Denies: Traveled Outside the [place] in Last 30 Days - Family History Known Family History: Negative: Diabetes - Social History Alcohol Use: None Alcohol Amount: social only Hx Substance Use: No Substance Use Type: Reports: None Hx Tobacco Use: Yes Smoking Status (MU): Former Smoker Type: Cigarettes Amount Used/How Often: 2 CIGARETTES PER DAYX 5 YEARS Have You Smoked in the Last Year: No Review of Systems Constitutional: Negative Eyes: Negative ENT: Negative Cardiovascular: Negative Respiratory: Negative Gastrointestinal: Negative Genitourinary: Negative Positive: Myalgia, Decreased ROM, Edema Positive: Bruising Neurological: Negative Psychological: Normal All Other Systems Reviewed And Are Negative: Yes Physical Exam - Summary Physical Exam Summary: Inspection of the left leg reveals erythema and warmth to the distal thigh and knee. Skin is considerably cooler to the touch from the midshin to the toes. Left calf has minimal ecchymosis. Dorsalis pedis pulse and posterior tibialis pulses are nonpalpable bilaterally. Dorsalis pedis pulse is present with bedside Doppler, bilaterally. Patient has full range of motion and 5 out of 5 strength in the lower extremities bilaterally. She has 7 out of 10 pain with palpation of the left calf. Patient has full sensation to light touch throughout the lower extremity bilaterally. Patient has full range of motion in her left and right knee nonsuggestive of septic joint. Triage Information Reviewed: Yes Vital Signs On Initial Exam: Initial Vitals Temp Pulse Resp BP Pulse Ox 98.4 F 83 18 137/73 97 10/10/19 14:18 10/10/19 14:18 10/10/19 14:18 10/10/19 14:18 10/10/19 14:18 Vital Signs Reviewed: Yes Appearance: Positive: Well-Appearing, No Pain Distress, Well-Nourished Skin: Positive: Warm Eyes: Positive: EOMI, DEVON ENT: Positive: Hearing grossly normal Respiratory/Lung Sounds: Positive: Clear to Auscultation, Breath Sounds Present Cardiovascular: Positive: RRR, S1, S2 Abdomen Description: Positive: Nontender, Soft Bowel Sounds: Positive: Present Musculoskeletal: Positive: Strength/ROM Intact, Edema Left. Negative: Carlos Sign Left, Carlos Sign Right, Edema Right Neurological: Positive: Sensory/Motor Intact, Alert, Oriented to Person Place, Time, Facial Symmetry, Speech Normal Psychiatric: Positive: Normal AVPU Assessment: Alert Procedures - Sedation Patient Received Moderate/Deep Sedation with Procedure: No Diagnostics - Vital Signs Vital Signs Temp Pulse Resp BP Pulse Ox 10/10/19 14:18 98.4 F 83 18 137/73 97 - Laboratory Result Diagrams: 10/10/19 14:56 10/10/19 14:56 Lab Statement: Any lab studies that have been ordered have been reviewed, and results considered in the medical decision making process. Lower Extremity Course/Dx - Course Course Of Treatment: Patient was evaluated in the emergency department for left knee pain. The patient was seen and examined her vitals are stable and she is afebrile. DVT study of the left leg showed no evidence of DVT. Laboratory studies show no evidence of leukocytosis with a white blood cell count 7.7.there are no significant electrolyte abnormalities and the patient is not anemic. C reactive protein is slightly elevated at 10.46. ESR pending. Septic joint was considered however based on laboratory studies and physical exam this is unlikely as she has full range of motion in the left knee. Patient's symptoms are likely due to localized inflammatory reaction from previously diagnosed left tibial plateau fracture on October 01, 2019. Patient has a scheduled appointment with orthopedics on October 13, 2019 for further evaluation and management of her symptoms. ESR pending which will decide patient disposition to rule out septic joint. Patient signed out to Svetlana Edwards, physician physical therapy assistant. - Diagnoses Differential Diagnosis/HQI/PQRI: Positive: Cellulitis, DVT, Fracture (Closed), Gout, Infection, Phlebitis, Septic Arthritis, Sprain, Strain, Tendonitis Provider Diagnoses: Left knee pain - Physician Notifications Discussed Care Of Patient With: Zaheer Andres Discharge ED - Sign-Out/Discharge Documenting (check all that apply): Patient Departure, Sign-Out Patient Signing out patient TO: Svetlana Edwards Receiving patient FROM: Taj Angel - Discharge Plan Condition: Stable Disposition: HOME Patient Education Materials: Leg Fracture (ED) Referrals: Magdy CHIRINOS,Alexx Velasquez [Primary Care Provider] - Lorna Apodaca MD [Medical Doctor] - 2 Days Additional Instructions: You were evaluated in the emergency department today due to pain and swelling in your left leg. Laboratory studies and an ultrasound was done which showed no evidence of a blood clot or infection. The symptoms you are experiencing are likely due to local inflammation from the previous fracture of your knee. Please follow-up with orthopedics for your scheduled appointment this Wednesday for further evaluation and management of your symptoms. Please return to the emergency department immediately if you develop any new or worsening symptoms. - Billing Disposition and Condition Condition: STABLE Disposition: Home - Attestation Statements Provider Attestation: Patient was presented to me by the ONEY[facility]. Patient has a history of a tibial plateau fracture on the left lower extremity that is being treated nonoperatively. Patient's had worsening swelling in her left lower extremity. Patient has a history DVT and is arty anticoagulated. Patient had negative ultrasound for DVT. Patient has no leukocytosis. Patient has a mildly elevated CRP.
[2019-10-10 15:20] LABS: ABS Eosinophils 0.1 10^3/ul (0-0.6); ABS Lymphocytes 1.8 10^3/ul (1.0-4.8); ABS Monocytes 0.6 10^3/ul (0-0.8); ABS Neutrophils 5.1 10^3/ul (1.5-7.7); Eosinophil % 1.4 %; Hematocrit 35 % (35-47); Hemoglobin 12.4 g/dL (12.0-16.0); Lymphocyte % 23.5 %; Mean Corpuscular HGB Conc 35 g/dL (31-36); Mean Corpuscular Hemoglobin 32 pg (27-31); Mean Corpuscular Volume 91 fL (80-97); Mean Platelet Volume 8.1 fL (7.4-10.4); Platelet Count 333 10^3/uL (150-450); Red Blood Count 3.85 10^6 /uL (3.70-4.87); Red Cell Distribution Width 13 % (10-15); White Blood Count 7.7 10^3/uL (3.5-10.8)
[2019-10-10 15:37] LABS: Activated Partial Thrombo Time 47.1 seconds (26.0-38.0); INR 1.2 (0.82-1.09)
[2019-10-10 15:44] LABS: Albumin 3.8 g/dL (3.2-5.2); Albumin/Globulin Ratio 1.4 (1-3); Calcium 8.9 mg/dL (8.6-10.3); Globulin 2.7 g/dL (2-4); Potassium 4.1 mmol/L (3.5-5.0); Total Bilirubin 0.8 mg/dL (0.2-1.0); Total Protein 6.5 g/dL (6.4-8.9)
[2019-10-10 16:20] LABS: C Reactive Protein 10.46 mg/L (<8.01)
[2019-10-10 17:37] LABS: BUN/Creatinine Ratio 26.1 (8-20); EGFR African American 98.8 (>60); EGFR Non-African American 81.7 (>60)
[2019-10-10 18:08] LABS: Erythrocyte Sed Rate 52 mm/Hr (0-29)
--- NOTE | 2019-10-10 18:37 | ED ---
Re-Evaluation - Re-Evaluation First Eval Re-Evaluation Time: 18:46 Comment: no erythema to joint, able to flex to 90, states that has better ROM than when first injuried it. no fevers Course/Dx - Course Course Of Treatment: Patient was evaluated in the emergency department for left knee pain. The patient was seen and examined her vitals are stable and she is afebrile. DVT study of the left leg showed no evidence of DVT. Laboratory studies show no evidence of leukocytosis with a white blood cell count 7.7.there are no significant electrolyte abnormalities and the patient is not anemic. C reactive protein is slightly elevated at 10.46. ESR pending. Septic joint was considered however based on laboratory studies and physical exam this is unlikely as she has full range of motion in the left knee. Patient's symptoms are likely due to localized inflammatory reaction from previously diagnosed left tibial plateau fracture on October 01, 2019. Patient has a scheduled appointment with orthopedics on October 13, 2019 for further evaluation and management of her symptoms. ESR was elevated but do not suspect septic joint. patient states has better ROM that right after fall. will have close follow up. believe that this is all traumatic. patient understand and agrees with plan. - Diagnoses Provider Diagnoses: Left knee pain Discharge ED - Sign-Out/Discharge Documenting (check all that apply): Patient Departure, Receiving Sign-Out Receiving patient FROM: Taj Angel - Discharge Plan Condition: Stable Disposition: HOME Patient Education Materials: Leg Fracture (ED) Referrals: Lorna Apodaca MD [Medical Doctor] - 2 Days Magdy CHIRINOS,Alexx Velasquez [Primary Care Provider] - Additional Instructions: apply ice elevate follow up with ortho or primary within 2 days Return to ED if develop fever, inability to move left leg, spreading rash, or any new or worsening symptoms - Billing Disposition and Condition Condition: STABLE Disposition: Home - Attestation Statements Provider Attestation: See my addendum on original chart
[2019-10-10 19:40] VITALS: BP 132/83
== END 2019-10-10 19:28 | disposition home or self-care (01) ==
LOC: ED 14:10
DX: M25.562 Pain in left knee (principal); I48.19 Other persistent atrial fibrillation; Z79.01 Long term (current) use of anticoagulants; I10 Essential (primary) hypertension; Z88.2 Allergy status to sulfonamides; Z87.891 Personal history of nicotine dependence
CPT/HCPCS: 36415; 80053; 85025; 85610; 85652; 85730; 86140; 93005; 99283

== ENCOUNTER 2024-06-09 18:37 | Observation (INO) ==
[2024-06-09 19:40] LABS: ABS Basophils 0.1 10^3/uL (0.0-0.1); ABS Eosinophils 0.2 10^3/uL (0.0-0.5); ABS Lymphocytes 1.9 10^3/uL (1.0-4.8); ABS Monocytes 0.8 10^3/uL (0.0-0.9); ABS Neutrophils 4.9 10^3/uL (1.5-7.6); Eosinophil % 2.3 %; Hematocrit 33.3 % (35-45); Hemoglobin 11.3 g/dL (11.5-14.3); Lymphocyte % 24.2 %; Mean Corpuscular Hemoglobin 32.4 pg (27-33); Mean Corpuscular Hgb Conc 33.8 g/dL (31-36); Mean Corpuscular Volume 95.9 fL (80-97); Mean Platelet Volume 8.5 fL (7.5-11.2); Platelet Count 240 10^3/uL (150-450); Red Blood Count 3.48 10^6/uL (3.63-4.92); Red Cell Distribution Width 12.8 % (12-17); White Blood Count 7.8 10^3/uL (3.8-11.8)
[2024-06-09 20:22] LABS: Calcium 8.8 mg/dL (8.6-10.3); Creatinine, Serum 2.05 mg/dL (0.51-0.95); Potassium 5.8 mmol/L (3.5-5.0); eGFR CKD-EPI 23.2 (>60)
[2024-06-09] MEDS: NS 0.9% 500 ml BAG 500 ML IV ONE (20:23)
[2024-06-09 21:08] LABS: High Sensitivity Troponin 1 Hr 18 pg/mL (<15)
[2024-06-09] MEDS: SODIUM ZIRCONIUM CYCLOSILICATE 10 GM PACKET PO SCH (21:09)
[2024-06-09] MEDS: Calcium Gluconate 1 GM/10 ML VIAL (in Pyxis) IV PUSH ONE (21:10)
[2024-06-09 22:05] LABS: High Sensitivity Troponin 3 Hr 16 pg/mL (<15)
[2024-06-09] MEDS: Dextrose 50% Syringe 50 ml 25 GM/50 ML SYRINGE IV PUSH ONE (23:14)
[2024-06-09] MEDS: NS 0.9% 1000 ml BAG 1,000 ML IV SCH (23:16)
[2024-06-10 00:10] LABS: Calcium 8.6 mg/dL (8.6-10.3); Creatinine, Serum 1.84 mg/dL (0.51-0.95); Potassium 5.9 mmol/L (3.5-5.0); eGFR CKD-EPI 26.4 (>60)
[2024-06-10 04:36] LABS: Anion Gap 10 mmol/L (2-16); Blood Urea Nitrogen 49 mg/dL (6-24); CO2 Carbon Dioxide 19 mmol/L (22-32); Calcium 9.3 mg/dL (8.6-10.3); Chloride 108 mmol/L (101-111); Creatinine, Serum 1.89 mg/dL (0.51-0.95); Glucose 73 mg/dL (70-100); Sodium 137 mmol/L (135-145); eGFR CKD-EPI 25.6 (>60)
[2024-06-10] MEDS: Sodium Polystyrene ORAL.SUSP 15 GM/60 ML BTL PO ONE (05:49)
[2024-06-10] MEDS: NS 0.9% 1000 ml BAG 1,000 ML IV ONE (09:35)
[2024-06-10 14:49] LABS: Calcium 8.8 mg/dL (8.6-10.3); Creatinine, Serum 1.6 mg/dL (0.51-0.95); Potassium 5.5 mmol/L (3.5-5.0); eGFR CKD-EPI 31.2 (>60)
[2024-06-10] MEDS: SODIUM ZIRCONIUM CYCLOSILICATE 10 GM PACKET PO ONE (15:32)
[2024-06-11] MEDS: Metoprolol Tartrate 5 mg VIAL 5 ml VIAL (1 mg/ml) IV ONE (00:05)
[2024-06-11 06:05] LABS: Anion Gap 9 mmol/L (2-16); Blood Urea Nitrogen 33 mg/dL (6-24); CO2 Carbon Dioxide 18 mmol/L (22-32); Chloride 113 mmol/L (101-111); Creatinine, Serum 1.53 mg/dL (0.51-0.95); Glucose 85 mg/dL (70-100); Magnesium 1.9 mg/dL (1.9-2.7); Sodium 140 mmol/L (135-145); eGFR CKD-EPI 32.9 (>60)
[2024-06-11] MEDS: SODIUM ZIRCONIUM CYCLOSILICATE 5 GM PACKET PO ONE (10:20)
[2024-06-11 14:23] VITALS: BP 104/68
== END 2024-06-11 15:33 | disposition home or self-care (01) ==
LOC: EDHOLD 18:37 → ED 18:37 → SUATTDRO 19:19 → MEDTELE 06-10 01:40
PROVIDERS: ADMIT Internal Medicine; ATTEND Student in an Organized Health Care Education/Training Program

== ENCOUNTER 2024-06-28 11:44 | Observation (INO) ==
[2024-06-28 13:27] LABS: ABS Lymphocytes 0.8 10^3/uL (1.0-4.8); ABS Monocytes 1.1 10^3/uL (0.0-0.9); ABS Neutrophils 6.4 10^3/uL (1.5-7.6); Eosinophil % 0.3 %; Hematocrit 34.6 % (35-45); Hemoglobin 11.3 g/dL (11.5-14.3); Mean Corpuscular Hgb Conc 32.8 g/dL (31-36); Mean Corpuscular Volume 94.6 fL (80-97); Platelet Count 255 10^3/uL (150-450); Red Blood Count 3.65 10^6/uL (3.63-4.92); Red Cell Distribution Width 13.3 % (12-17); White Blood Count 8.3 10^3/uL (3.8-11.8)
[2024-06-28] MEDS: Ondansetron 4 mg VIAL 2 MG/ML 2 ml VIAL IV ONE (13:44)
[2024-06-28 14:10] LABS: Albumin 4.2 g/dL (3.2-5.2); Albumin/Globulin Ratio 1.6 (1-3); C Reactive Protein 57.51 mg/L (<8.01); Creatinine, Serum 1.13 mg/dL (0.51-0.95); Globulin 2.6 g/dL (2-4); Potassium 4.1 mmol/L (3.5-5.0); Total Bilirubin 1.1 mg/dL (0.2-1.0); Total Protein 6.8 g/dL (6.4-8.9); eGFR CKD-EPI 47.4 (>60)
[2024-06-28] MEDS: Furosemide 40 mg/4 ml IV VIAL IV SLOW PU ONE (14:22)
[2024-06-28 15:03] LABS: High Sensitivity Troponin 1 Hr 43 pg/mL (<15)
[2024-06-28] MEDS ORDERED: Sulfur Hexaflouride MICROSPHR 25 MG VIAL IV PRN (17:10)
[2024-06-28] MEDS ORDERED: Metoprolol Tartrate 5 mg VIAL 5 ml VIAL (1 mg/ml) IV PRN (18:42)
[2024-06-29 06:02] LABS: Hematocrit 34.6 % (35-45); Hemoglobin 11.8 g/dL (11.5-14.3); Mean Corpuscular Hgb Conc 34.1 g/dL (31-36); Mean Corpuscular Volume 93.9 fL (80-97); Mean Platelet Volume 8.4 fL (7.5-11.2); Platelet Count 257 10^3/uL (150-450); Red Blood Count 3.69 10^6/uL (3.63-4.92); Red Cell Distribution Width 12.9 % (12-17); White Blood Count 7.2 10^3/uL (3.8-11.8)
[2024-06-29 06:17] LABS: Calcium 8.5 mg/dL (8.6-10.3); Creatinine, Serum 1.27 mg/dL (0.51-0.95); Magnesium 2.2 mg/dL (1.9-2.7); Potassium 3.9 mmol/L (3.5-5.0); eGFR CKD-EPI 41.2 (>60)
[2024-06-29] MEDS: Potassium Chlor 20 meq TAB.ER PO ONE (07:41)
[2024-06-29] MEDS: Furosemide 40 mg/4 ml IV VIAL IV SLOW PU ONE (10:29)
[2024-06-30 06:44] LABS: Hematocrit 36.1 % (35-45); Hemoglobin 12.3 g/dL (11.5-14.3); Mean Corpuscular Hgb Conc 34.1 g/dL (31-36); Mean Corpuscular Volume 93.8 fL (80-97); Mean Platelet Volume 8.9 fL (7.5-11.2); Platelet Count 277 10^3/uL (150-450); Red Blood Count 3.85 10^6/uL (3.63-4.92); Red Cell Distribution Width 12.6 % (12-17); White Blood Count 7.3 10^3/uL (3.8-11.8)
[2024-06-30 07:27] LABS: Anion Gap 14 mmol/L (2-16); Blood Urea Nitrogen 34 mg/dL (6-24); CO2 Carbon Dioxide 23 mmol/L (22-32); Chloride 103 mmol/L (101-111); Creatinine, Serum 1.28 mg/dL (0.51-0.95); Glucose 79 mg/dL (70-100); Sodium 140 mmol/L (135-145); eGFR CKD-EPI 40.8 (>60)
[2024-06-30 08:44] LABS: Magnesium 2.1 mg/dL (1.9-2.7)
[2024-06-30 09:42] VITALS: BP 118/72
[2024-07-06] MEDS: Iodixanol (CONTRAST) 320 MG/ML 100 ML SDV IV ONE (08:28)
== END 2024-06-30 13:26 | disposition home or self-care (01) ==
LOC: ED 11:44 → SUATTDRO 15:44 → INTOOBSV 15:44 → EDHOLD 15:44 → MEDTELE 16:42
PROVIDERS: ADMIT Hospitalist; ATTEND Internal Medicine